=== PATIENT | male | born 1950 | race Caucasian/White ===

== ENCOUNTER → 2018-08-16 | Outpatient (CLI) | payer MEDICARE ==
[2018-08-16 13:25] LABS: PTH INTACT 39.2 PG/ML (18.5-88.0); TOTAL 25(OH) VITAMIN D 9.8 NG/ML (30.0-100.0)
== END ==
LOC: M SMT 09:17
PROVIDERS: ATTEND Family Medicine
DX: E83.52 Hypercalcemia (principal)

== ENCOUNTER 2018-11-28 10:46 | Inpatient (IN) | payer MEDICARE, OTHER ==
[2018-11-28] VITALS (8 sets, daily range): BP systolic 116–128; BP diastolic 58–68; O2SAT 93–96
[~2018-11-28] VITALS: Ht 177.8 cm; Wt 103.9 kg
--- NOTE | 2018-11-28 11:27 | REP ---
Chest one-view HISTORY: Cough Comparison: 06/14/2015 The lungs are clear. The heart is normal in size. The pulmonary vasculature is normal in appearance. Impression: No acute disease. Electronically Signed by Dar Johnson MD 11/28/2018 11:19 A
[2018-11-28 11:46] LABS: BASO % 0.2 % (0.0-1.0); EOS % 0.3 % (0.0-3.0); HEMATOCRIT 37.1 % (42.0-52.0); HEMOGLOBIN 12.1 g/dl (13.5-17.5); LYMPH # 1.2 10^3/uL (1.5-4.5); LYMPH % 10.4 % (24.0-44.0); MEAN CORPUSCULAR HEMOGLOBIN 28.7 pg (27.0-33.0); MEAN CORPUSCULAR HGB CONC 32.6 g/dl (32.0-36.5); MEAN CORPUSCULAR VOLUME 87.9 fl (80.0-96.0); MONO # 0.9 10^3/uL (0.0-0.8); MONO % 7.8 % (0.0-5.0); NEUTROPHILS # 9.4 10^3/uL (1.8-7.7); NEUTROPHILS % 80.3 % (36.0-66.0); PLATELET COUNT, AUTOMATED 329 10^3/uL (150-450); RED BLOOD COUNT 4.22 10^6/uL (4.30-6.10); WHITE BLOOD COUNT 11.7 10^3/uL (4.0-10.0)
[2018-11-28 11:49] LABS: ABG BASE EXCESS -1.6 (-2.0-2.0); ABG HCO3 21.7 MEQ/L (22.0-26.0); ABG O2 SATURATION 94.6 % (95.0-99.0); ABG PARTIAL PRESSURE CO2 32.2 mmHg (35.0-45.0); ABG PARTIAL PRESSURE O2 71.4 mmHg (75.0-100.0); ABG STANDARD HCO3 23.1 MEQ/L (22.0-26.0); ABG TOTAL CO2 22.7 MEQ/L (23.0-31.0); ABG pH (ARTERIAL) 7.447 UNITS (7.350-7.450)
[2018-11-28 11:59] LABS: INR 4.76; PROTHROMBIN TIME 45.9 SECONDS (12.1-14.4)
[2018-11-28 12:19] LABS: ALT/SGPT 21 U/L (12-78); BILIRUBIN,DIRECT 0.2 MG/DL (0.0-0.2); BILIRUBIN,TOTAL 0.7 MG/DL (0.2-1.0); BLOOD UREA NITROGEN 22 MG/DL (7-18); CALCIUM LEVEL 8.4 MG/DL (8.8-10.2); CARBON DIOXIDE LEVEL 25 MEQ/L (21-32); CHLORIDE LEVEL 106 MEQ/L (98-107); CPK CREATINE PHOSPHOKINASE 96 U/L (39-308); GLOMERULAR FILTRATION RATE > 60.0 (>49); GLUCOSE, FASTING 130 MG/DL (70-100); MB/CK RELATIVE INDEX 1.56 (< OR =4); NT-PRO BNP 2676 PG/ML (<125); SODIUM LEVEL 142 MEQ/L (136-145); TOTAL PROTEIN 6.5 GM/DL (6.4-8.2); TROPONIN I 0.14 NG/ML (< 0.10)
[2018-11-28] MEDS ORDERED: ISOVUE-370 76% 100ML VIAL (Q9967) As Ordered ONE (12:47)
[2018-11-28] MEDS ORDERED: POTA10TA67 PO (13:16)
[2018-11-28] MEDS ORDERED: METO25TA4 PO (13:16)
[2018-11-28] MEDS ORDERED: D-50CAP PO (13:16)
[2018-11-28] MEDS ORDERED: INVO300T PO (13:16)
[2018-11-28] MEDS ORDERED: ASPI81TA85 PO (13:16)
[2018-11-28] MEDS ORDERED: COLA100C5 PO (13:16)
[2018-11-28] MEDS ORDERED: WARF4TAB51 PO (13:16)
[2018-11-28] MEDS ORDERED: VALS1TAB49 PO (13:16)
[2018-11-28] MEDS ORDERED: FURO20TA2 PO (13:16)
[2018-11-28] MEDS ORDERED: GABA-845 PO (13:16)
[2018-11-28] MEDS ORDERED: FOLI1TAB11 PO (13:16)
[2018-11-28] MEDS ORDERED: JANU50TA8 PO (13:16)
[2018-11-28] MEDS ORDERED: FERR325T16 PO (13:16)
[2018-11-28] MEDS ORDERED: ATOR40TA75 PO (13:16)
[2018-11-28] MEDS ORDERED: AMIO200T PO (13:16)
[2018-11-28] MEDS ORDERED: LEVO50TA5 PO (13:16)
[2018-11-28] MEDS ORDERED: OXYC1TAB23 PO (15:00)
[2018-11-28] MEDS ORDERED: ACET-908 PO (15:00)
--- NOTE | 2018-11-28 15:14 | REP ---
CT PULMONARY ANGIOGRAM: With IV contrast. HISTORY: Shortness of breath. Chest pain. Status post CABG and aortic valve procedure November 20, 2018 COMPARISON STUDIES: No comparison chest CT. CONTRAST DOSE: 75 mL of Isovue [address] TECHNIQUE: Helical scanning is acquired and overlapping 1.5 mm and contiguous 3 mm axial images are reformatted. In addition, maximum intensity projection and multiplanar re-formation images are generated in sagittal and coronal imaging projections. CT PULMONARY ANGIOGRAPHIC FINDINGS: There is good opacification of the pulmonary arterial tree. There is no CT evidence of pulmonary embolism. Thoracic aorta enhances homogeneously. There is no evidence of aortic dissection or aneurysm. There is a small amount of pericardial fluid seen. There is some postoperative air visible in the epicardial fat anteriorly and deep to the sternotomy. There is no evidence of pneumothorax or other evidence of pneumomediastinum. There is pleural fluid present bilaterally, left a little more extensively than right. These effusions are small. The patient is status post aortic valve replacement. No pulmonary nodule or mass lesion is seen. There are plate-like atelectatic changes in the left upper lobe anteriorly. There is a 2.7 cm right adrenal nodule. IMPRESSION: Status post a recent aortic valve replacement and bypass grafting procedure. Some postoperative air is seen in the epicardial fat and retrosternal soft tissues. Small bilateral pleural effusions are present left greater than right. There is a small quantity of pericardial fluid. There is no CT evidence of pulmonary embolus or aortic dissection or aneurysm. A 2.7 cm right adrenal nodule is noted incidentally. This may be an adenoma but this cannot be stated with certainty on this contrast-enhanced study. A noncontrast CT may be helpful. Electronically Signed by Christian Mcneill MD 11/28/2018 03:54 P
[2018-11-28] MEDS ORDERED: FUROSEMIDE 40 MG/4 ML VIAL (J1940) IV ONE (15:30)
[2018-11-28] MEDS ORDERED: ALBUTEROL SULFATE 2.5 MG/0.5 ML INH NEB SOLN INH ONE (15:30)
[2018-11-28] MEDS ORDERED: IPRATROPIUM 0.5MG/ALBUTEROL 2.5MG INH SOL UD 3ML (DUONEB)(J7620) NEB ONE (15:30)
[2018-11-28] MEDS ORDERED: LEVO75TA4 PO (16:05)
[2018-11-28] MEDS ORDERED: ACETAMINOPHEN TAB 650MG DOSE (2X325MG) PO PRN (16:30)
[2018-11-28] MEDS ORDERED: MAALOX 30 ML SUSP *UDC PO PRN (16:30)
[2018-11-28] MEDS ORDERED: DEXTROSE 50% 50 ML SYRINGE IV PRN (16:30)
[2018-11-28] MEDS ORDERED: AMIODARONE 200 MG TAB (PACERONE) PO SCH (16:30)
[2018-11-28] MEDS ORDERED: GLUCAGON FOR INJ 1 MG VIAL (J1610) SC PRN (16:30)
[2018-11-28] MEDS ORDERED: GLUCOSE 4 GM CHEW TABLET PO PRN (16:30)
[2018-11-28] MEDS ORDERED: MOM 30ML SUSPENSION UDC PO PRN (16:30)
[2018-11-28] MEDS ORDERED: DOCUSATE SODIUM 100 MG CAP PO PRN (16:30)
[2018-11-28] MEDS ORDERED: PERCOCET 5MG/325MG TAB PO PRN (16:30)
--- NOTE | 2018-11-28 16:42 | HPEPDOC ---
General Date of Admission 11/28/2018 Date of Service: November 28, 2018 Primary Care Physician: ERNESTINE LAWSON DO Attending Physician: MARIVEL CLARKE MD Chief Complaint The patient is a 68-year-old male admitted with a reason for visit of SOB. Source: Patient, Family Exam Limitations: No limitations Timing/Duration: Other (his discharge from [facility]) Severity: Moderate Associated Symptoms: Nausea, Shortness of breath, Dizziness History of Present Illness 68 years old white male with past medical history of CAD, hypertension, hyperlipidemia, diabetes type 2. Once recently admitted to [place] at [facility] and had a aortic wall replacement along with CABG done and he was discharged home on last Sunday but patient has been feeling tired, fatigued, dizzy, nausea and shortness of breath. These symptoms of persistent not relieving with any medication or position nonexcessive not exacerbated by any position . No other association with any other symptoms such as chest pain, nausea is not associated with vomiting and dizziness not associated with headache. Patient called his his wire cutter Dr. Munoz and was referred to ER Home Medications Scheduled Amiodarone HCl (Amiodarone HCl) 200 Mg Tablet, 200 MG PO ASDIRECTED, (Reported) TAPERING DOSE STARTED ON 11/24/18. 2 TABS BID X 7 DAYS THEN 1 TAB BID X 7 DAYS THEN 1 DAILY X 7 DAYS. Aspirin (Aspir 81) 81 Mg Tablet.dr, 81 MG PO DAILY, (Reported) Atorvastatin Calcium (Atorvastatin Calcium) 40 Mg Tablet, 40 MG PO DAILY, (Reported) Canagliflozin (Invokana) 300 Mg Tablet, 300 MG PO DAILY, (Reported) Ferrous Gluconate (Ferrous Gluconate) 324 Mg Tablet, 324 MG PO BIDWM, (Reported) Folic Acid (Folic Acid) 1 Mg Tablet, 1 MG PO DAILY, (Reported) Furosemide (Furosemide) 20 Mg Tablet, 20 MG PO DAILY, (Reported) Gabapentin (Gabapentin) 400 Mg Capsule, 400 MG PO BID, (Reported) Levothyroxine Sodium (Levothyroxine Sodium) 75 Mcg Tablet, 75 MCG PO DAILY, (Reported) Metoprolol Tartrate (Metoprolol Tartrate) 25 Mg Tablet, 25 MG PO BID, (Reported) Potassium Chloride (Potassium Chloride) 10 Meq Tab.er.prt, 10 MEQ PO DAILY, (Reported) Sitagliptin Phos/Metformin HCl (Janumet 50-1,000 mg Tablet) 1 Each Tablet, 1 TAB PO BID, (Reported) Valsartan (Valsartan) 40 Mg Tablet, 20 MG PO DAILY, (Reported) Warfarin Sodium (Warfarin Sodium) 2 Mg Tablet, 4 MG PO QHS, (Reported) Scheduled PRN Acetaminophen (Acetaminophen) 325 Mg Tablet, 650 MG PO Q4H PRN for PAIN, (Reported) Docusate Sodium (Colace) 100 Mg Capsule, 100 MG PO BID PRN for LOOSE STOOL, (Reported) Oxycodone HCl/Acetaminophen (Oxycodone-Acetaminophen 5-325) 1 Each Tablet, 1 TAB PO Q4H PRN for PAIN, (Reported) Allergies Coded Allergies: No Known Allergies (Unverified , 11/28/18) Past Medical History Medical History As per [facility] Surgical History Circumcision recently about 2 weeks ago Family History Significant Family History: No pertinent family hx Social History * Smoker: Denies Drugs: denies A-FIB/CHADSVASC A-FIB History Current/History of A-Fib/PAF?: Yes Current PO Anticoag Therapy: Yes Review of Systems Constitutional: Reports: Weakness, Fatigue Eyes: Denies: Pain, Vision change, Conjunctivae inflammation, Eyelid inflammation, Redness, Other ENT: Denies: Head Aches, Ear Pain, Dysphagia, Sinus Congestion, Post Nasal Drip, Sore Throat, Epistaxis, Other Symptoms Skin: Denies: Rash, Lesions, Jaundice, Bruising, Itching, Dry, Breakdown, Nail Changes, Other Pulmonary: Reports: Dyspnea Cardiovascular: Denies: Chest Pain, Palpitations, Orthopnea, Paroxysmal Noc. Dyspnea, Edema, Lt Headedness, Other Symptoms Gastrointestinal: Reports: Nausea Genitourinary: Denies: Dysuria, Frequency, Incontinence, Hematuria, Retention, Other Symptoms Hematologic: Denies: Bruising, Bleeding Excessively, Petecchia, Purpura, Enlarged Lymph Nodes, Other Hematologic Endocrine: Denies: Polydipsia, Polyphagia, Polyuria, Heat Intolerance, Cold Intolerance, Other Endocrine Sx Musculoskeletal: Denies: Neck Pain, Back Pain, Shoulder Pain, Arm Pain, Hand Pain, Leg Pain, Foot Pain, Joint Pain, Muscle Pain, Spasms, Other Symptoms Neurological: Reports: Other Symptoms (, dizziness) Psych: Denies: Mood Normal, Anxiety, Depression, Memory Issues, Thoughts of Self Harm, Anger, Thoughts of Harming Other, Other Psych Physical Examination General Exam: Positive: Alert, Cooperative, No Acute Distress Eye Exam: Positive: PERRLA, Conjunctiva & lids normal ENT Exam: Positive: Atraumatic, Mucous membr. moist/pink Neck Exam: Positive: Supple Chest Exam: Positive: Clear to auscultation, Normal air movement Heart Exam: Positive: Rate Normal, Normal S1, Normal S2, Murmurs (, pansystolic murmur audible) Abdomen Exam: Positive: Normal bowel sounds, Soft Extremity Exam: Positive: Normal pulses Skin Exam: Positive: Nl turgor and temperature Neuro Exam: Positive: Normal Gait, Normal Speech Psych Exam: Positive: Mental status NL, Oriented x 3 Vital Signs Vital Signs Date Time Temp Pulse Resp B/P (MAP) Pulse Ox O2 Delivery O2 Flow Rate FiO2 11/28/18 16:00 66 133/68 (89) 95 11/28/18 11:45 Room Air 11/28/18 11:30 17 11/28/18 10:46 96.2 Laboratory Data Labs 24H Laboratory Tests 2 11/28/18 11:30: Immature Granulocyte % (Auto) 1.0, White Blood Count 11.7H, Red Blood Count 4.22L, Hemoglobin 12.1L, Hematocrit 37.1L, Mean Corpuscular Volume 87.9, Mean Corpuscular Hemoglobin 28.7, Mean Corpuscular Hemoglobin Concent 32.6, Red Cell Distribution Width 14.4, Platelet Count 329, Neutrophils (%) (Auto) 80.3H, Lymphocytes (%) (Auto) 10.4L, Monocytes (%) (Auto) 7.8H, Eosinophils (%) (Auto) 0.3, Basophils (%) (Auto) 0.2, Neutrophils # (Auto) 9.4H, Lymphocytes # (Auto) 1.2L, Monocytes # (Auto) 0.9H, Eosinophils # (Auto) 0.0, Basophils # (Auto) 0.0, Nucleated Red Blood Cells % (auto) 0.0, Prothrombin Time 45.9H, Prothromb Time International Ratio 4.76, Anion Gap 11, Glomerular Filtration Rate > 60.0, Lactic Acid Level 1.6, Calcium Level 8.4L, Aspartate Amino Transf (AST/SGOT) 25, Alanine Aminotransferase (ALT/SGPT) 21, Alkaline Phosphatase 66, Total Bilirubin 0.7, Direct Bilirubin 0.2, Total Creatine Kinase 96, Creatine Kinase MB 2.0, Creatine Kinase MB Relative Index 1.56, Troponin I 0.14H, SP-Pin-N-Type Natriuretic Peptide 2676H, Total Protein 6.5, Albumin 3.0L, Albumin/Globulin Ratio 0.86L, Thyroid Stimulating Hormone (TSH) 3.240 11/28/18 11:37: Blood Gas Bicarbonate Standard 23.1, Arterial Blood pH 7.447, Arterial Blood Partial Pressure CO2 32.2L, Arterial Blood Partial Pressure O2 71.4L, Arterial Blood Total CO2 22.7L, Arterial Blood HCO3 21.7L, Arterial Blood Base Excess - 1.6, Arterial Blood Oxygen Saturation 94.6L 11/28/18 15:27: Urine Color YELLOW, Urine Appearance CLEAR, Urine pH 5.0, Urine Specific [place] 1.040, Urine Protein NEGATIVE, Urine Glucose (UA) 3+H, Urine Ketones 1+H, Urine Blood NEGATIVE, Urine Nitrite NEGATIVE, Urine Bilirubin NEGATIVE, Urine Urobilinogen 0.2, Urine Leukocyte Esterase NEGATIVE, Urine WBC (Auto) 0, Urine RBC (Auto) 3, Urine Hyaline Casts (Auto) 0, Urine Bacteria (Auto) NEGATIVE, Urine Squamous Epithelial Cells 0, Urine Sperm (Auto) CBC/BMP Laboratory Tests 11/28/18 11:30 Red Blood Count 4.22 L, Mean Corpuscular Volume 87.9, Mean Corpuscular Hemoglobin 28.7, Mean Corpuscular Hemoglobin Concent 32.6, Red Cell Distribution Width 14.4, Neutrophils (%) (Auto) 80.3 H, Lymphocytes (%) (Auto) 10.4 L, Monocytes (%) (Auto) 7.8 H, Eosinophils (%) (Auto) 0.3, Basophils (%) (Auto) 0.2, Neutrophils # (Auto) 9.4 H, Lymphocytes # (Auto) 1.2 L, Monocytes # (Auto) 0.9 H, Eosinophils # (Auto) 0.0, Basophils # (Auto) 0.0 Microbiology Microbiology 11/28/18 Blood Culture, Received Pending 11/28/18 Blood Culture, Received Pending Problems (1) CHF (congestive heart failure) Status: Acute Problem Text: Admit patient to PCU with telemetry Strict I and O's Patient did receive a dose of Lasix of dose of Lasix 40 mg IV push ED physician Dr. Mars has spoken with Dr. eduardo very and Dr. Jean and they have recommended diurese is at the present time. Will continue diuresis with Lasix 40 mg IV push every 12 hours Fingerstick blood sugar every before meals and at bedtime with coverage Continue all home medications Serial troponin and EKG ordered Serum amiodarone level also ordered Echocardiogram CT showed consistent with bilateral small pleural effusions, no pneumonia UA is negative wbc count is slightly elevated and electrolytes are within normal range except BNP, which is 2675 and troponin is 0.14 If patient does not improve in 24 hours. We'll call back Dr. eduardo who performed the surgery on a patient and asked for further recommendations. DVT prophylaxis not needed as patient is on Coumadin and INR is supratherapeutic, for which a daily INR has been ordered and Coumadin is on hold , We'll closely monitor patient for any changes in the clinical status Plan / VTE VTE Prophylaxis Ordered?: Yes MARIVEL CLARKE MD November 28, 2018 16:42
[2018-11-28] MEDS: HumaLOG INSULIN (NovoLOG) PER UNIT SC SCH ×2 (17:30→20:09)
[2018-11-28] MEDS ORDERED: PILL CUTTER 1 EACH XX PRN (18:45)
[2018-11-28] MEDS: FERROUS GLUCONATE 324 MG TAB PO SCH (19:36)
[2018-11-28] MEDS: GABAPENTIN 400 MG CAP PO SCH (20:04)
[2018-11-28] MEDS: METOPROLOL TART 25 MG TABLET PO SCH (20:04)
[2018-11-28] MEDS: AMIODARONE 200 MG TAB (PACERONE) PO SCH (20:04)
[2018-11-28] MEDS: DOCUSATE SODIUM 100 MG CAP PO SCH (20:04)
[2018-11-29] VITALS (14 sets, daily range): BP systolic 109–123; BP diastolic 57–74; O2SAT 93–95
--- NOTE | 2018-11-29 05:52 | ECGEPIP ---
[facility] - ED Test Date: 2018-11-28 Pat Name: KARAN ZULUAGA Department: Room: - Gender: Male Compliance Officer: ct : 1950 Requested By: Elina Nichols Order Number: [id number] Reading MD: Steven Sow Measurements Intervals [place] Rate: 65 P: 9 TN: 230 QRS: QRSD: 100 T: 14 QT: 430 QTc: 448 Interpretive Statements SINUS RHYTHM WITH FIRST DEGREE AV BLOCK POSSIBLE ANTERIOR MYOCARDIAL INFARCTION, OF INDETERMINATE AGE SIMILAR TO 06/14/15 Electronically Signed on 11-29-2018 5:52:18 EDT by Steven Sow
[2018-11-29 05:56] LABS: HEMATOCRIT 35.7 % (42.0-52.0); HEMOGLOBIN 11.6 g/dl (13.5-17.5); MEAN CORPUSCULAR HEMOGLOBIN 28.6 pg (27.0-33.0); MEAN CORPUSCULAR HGB CONC 32.5 g/dl (32.0-36.5); MEAN CORPUSCULAR VOLUME 87.9 fl (80.0-96.0); PLATELET COUNT, AUTOMATED 315 10^3/uL (150-450); RED BLOOD COUNT 4.06 10^6/uL (4.30-6.10); WHITE BLOOD COUNT 10.5 10^3/uL (4.0-10.0)
[2018-11-29 06:13] LABS: INR 4.34; PROTHROMBIN TIME 42.6 SECONDS (12.1-14.4)
[2018-11-29 06:29] LABS: ALBUMIN 2.7 GM/DL (3.2-5.2); ALT/SGPT 24 U/L (12-78); BILIRUBIN,TOTAL 0.7 MG/DL (0.2-1.0); BLOOD UREA NITROGEN 25 MG/DL (7-18); CALCIUM LEVEL 8.6 MG/DL (8.8-10.2); CARBON DIOXIDE LEVEL 24 MEQ/L (21-32); CHLORIDE LEVEL 107 MEQ/L (98-107); CREATININE FOR GFR 1.15 MG/DL (0.70-1.30); GLOMERULAR FILTRATION RATE > 60.0 (>49); GLUCOSE, FASTING 122 MG/DL (70-100); POTASSIUM SERUM 3.6 MEQ/L (3.5-5.1); SODIUM LEVEL 141 MEQ/L (136-145); TOTAL PROTEIN 6.4 GM/DL (6.4-8.2); TROPONIN I 0.13 NG/ML (< 0.10)
[2018-11-29] MEDS: LEVOTHYROXINE 75MCG TABLET (0.075MG) PO SCH (06:31)
[2018-11-29] MEDS: FUROSEMIDE 40 MG/4 ML VIAL (J1940) IV SCH ×2 (06:32→18:09)
[2018-11-29] MEDS: HumaLOG INSULIN (NovoLOG) PER UNIT SC SCH ×4 (08:48→20:40)
[2018-11-29] MEDS: ASPIRIN 81 MG ENTERIC TAB PO SCH (08:49)
[2018-11-29] MEDS: GABAPENTIN 400 MG CAP PO SCH ×2 (08:49→20:37)
[2018-11-29] MEDS: ATORVASTATIN 20 MG TAB PO SCH (08:49)
[2018-11-29] MEDS: DOCUSATE SODIUM 100 MG CAP PO SCH ×2 (08:49→20:37)
[2018-11-29] MEDS: FERROUS GLUCONATE 324 MG TAB PO SCH ×2 (08:50→18:09)
[2018-11-29] MEDS: FOLIC ACID 1 MG TAB PO SCH (08:50)
[2018-11-29] MEDS: AMIODARONE 200 MG TAB (PACERONE) PO SCH ×2 (08:50→20:37)
[2018-11-29] MEDS: METOPROLOL TART 25 MG TABLET PO SCH ×2 (08:50→20:39)
[2018-11-29] MEDS: VALSARTAN 40MG TABLET (DIOVAN) PO SCH (08:51)
[2018-11-29] MEDS ORDERED: POTASSIUM CHLORIDE 10 MEQ SR TABLET PO SCH (09:00)
--- NOTE | 2018-11-29 10:07 | REP ---
Portable chest x-ray: Single view. History: CHF. Comparison study: November 28, 2018. Findings: The lungs are well inflated and clear. EKG electrodes are seen. Median sternotomy wires are noted. Heart is mildly enlarged unchanged. There is a linear opacity along the left heart border consistent with discoid atelectasis. The pleural angles are sharp. Impression: Cardiomegaly. Plate-like atelectasis along the left heart border. Otherwise no acute abnormality. There is no evidence of pleural effusion or pulmonary edema. Electronically Signed by Christian Mcneill MD 11/29/2018 09:59 A
--- NOTE | 2018-11-29 12:34 | IPNPDOC ---
Subjective Date Seen The patient was seen on 11/29/18. Subjective Chief Complaint/HPI foods much better. Shortness of breath is resolved General: Denies: ROS Unobtainable, Chills, Night Sweats, Fatigue, Malaise, Normal Appetite, Other Symptoms Constitutional: Denies: Chills, Fever, Malaise, Night Sweats, Weakness, Fatigue, Weight Loss, Lethargy, Other Eyes: Denies: Pain, Vision change, Conjunctivae inflammation, Eyelid inflammation, Redness, Other ENT: Denies: Head Aches, Ear Pain, Dysphagia, Sinus Congestion, Post Nasal Drip, Sore Throat, Epistaxis, Other Symptoms Skin: Denies: Rash, Lesions, Jaundice, Bruising, Itching, Dry, Breakdown, Nail Changes, Other Pulmonary: Denies: Dyspnea, Cough, Pleuritic Chest Pain, Other Symptoms Cardiovascular: Denies: Chest Pain, Palpitations, Orthopnea, Paroxysmal Noc. Dyspnea, Edema, Lt Headedness, Other Symptoms Gastrointestinal: Denies: Nausea, Vomiting, Abdominal Pain, Diarrhea, Constipation, Melena, Hematochezia, Other Symptoms Genitourinary: Denies: Dysuria, Frequency, Incontinence, Hematuria, Retention, Other Symptoms Hematologic: Denies: Bruising, Bleeding Excessively, Petecchia, Purpura, Enlarged Lymph Nodes, Other Hematologic Endocrine: Denies: Polydipsia, Polyphagia, Polyuria, Heat Intolerance, Cold Intolerance, Other Endocrine Sx Musculoskeletal: Denies: Neck Pain, Back Pain, Shoulder Pain, Arm Pain, Hand Pain, Leg Pain, Foot Pain, Joint Pain, Muscle Pain, Spasms, Other Symptoms Neurological: Denies: Weakness, Numbness, Incoordination, Change in speech, Confusion, Seizures, Other Symptoms Psych: Denies: Mood Normal, Anxiety, Depression, Memory Issues, Thoughts of Self Harm, Anger, Thoughts of Harming Other, Other Psych Objective Physical Examination General Exam: Positive: Alert, Cooperative, No Acute Distress Eye Exam: Positive: PERRLA, Conjunctiva & lids normal ENT Exam: Positive: Atraumatic, Mucous membr. moist/pink Neck Exam: Positive: Supple Chest Exam: Positive: Clear to auscultation, Normal air movement, Other (. Bilateral basal crackles) Heart Exam: Positive: Rate Normal, Normal S1, Normal S2, Murmurs (, pansystolic murmur audible) Abdomen Exam: Positive: Normal bowel sounds, Soft Extremity Exam: Positive: Normal pulses Skin Exam: Positive: Nl turgor and temperature Neuro Exam: Positive: Normal Gait, Normal Speech Psych Exam: Positive: Mental status NL, Oriented x 3 Assessment /Plan Problems (1) CHF (congestive heart failure) Status: Acute Problem Text: Admit patient to PCU with telemetry Strict I and O's Patient did receive a dose of Lasix of dose of Lasix 40 mg IV push ED physician Dr. Mars has spoken with Dr. eduardo very and Dr. Jean and they have recommended diurese is at the present time. Will continue diuresis with Lasix 40 mg IV push every [address] Munoz today during the any abnormality and echocardiogram, and patient does not improve improve, we will called for consultation Fingerstick blood sugar every before meals and at bedtime with coverage Continue all home medications Serial troponin with slight bump most likely secondary to type II ischemia and EKG essentially unchanged Serum amiodarone level pending CT showed consistent with bilateral small pleural effusions, no pneumonia UA is negative wbc count is slightly elevated and electrolytes are within normal range except BNP, which is 2675 and troponin is 0.14 If patient does not improve in 24 hours. We'll call back Dr. eduardo who performed the surgery on a patient and asked for further recommendations. DVT prophylaxis not needed as patient is on Coumadin and INR is supratherapeutic, for which a daily INR has been ordered and Coumadin is on hold , We'll closely monitor patient for any changes in the clinical status Plan/VTE VTE Prophylaxis Ordered?: Yes VS, I&O, 24H, Patricia Vital Signs/I&O Vital Signs Date Time Temp Pulse Resp B/P (MAP) Pulse Ox O2 Delivery O2 Flow Rate FiO2 11/29/18 12:00 96.9 64 16 110/57 (74) 96 11/29/18 04:00 Room Air I&O- Last 24 Hours up to 6 AM 11/29/18 06:00 Intake Total 740 ml Output Total 1200 ml Balance -460 ml Laboratory Data 24H LABS Laboratory Tests 2 11/28/18 15:27: Urine Color YELLOW, Urine Appearance CLEAR, Urine pH 5.0, Urine Specific [place] 1.040, Urine Protein NEGATIVE, Urine Glucose (UA) 3+H, Urine Ketones 1+H, Urine Blood NEGATIVE, Urine Nitrite NEGATIVE, Urine Bilirubin NEGATIVE, Urine U robilinogen 0.2, Urine Leukocyte Esterase NEGATIVE, Urine WBC (Auto) 0, Urine RBC (Auto) 3, Urine Hyaline Casts (Auto) 0, Urine Bacteria (Auto) NEGATIVE, Urine Squamous Epithelial Cells 0, Urine Sperm (Auto) 11/28/18 18:23: Bedside Glucose (Misc Panel) 247H 11/28/18 20:07: Bedside Glucose (Misc Panel) 154H 11/29/18 05:28: Nucleated Red Blood Cells % (auto) 0.0, Prothrombin Time 42.6H, Prothromb Time International Ratio 4.34, Anion Gap 10, Glomerular Filtration Rate > 60.0, Blood Urea Nitrogen 25H, Creatinine 1.15, Sodium Level 141, Potassium Level 3.6, Chloride Level 107, Carbon Dioxide Level 24, Calcium Level 8.6L, Aspartate Amino Transf (AST/SGOT) 20, Alanine Aminotransferase (ALT/SGPT) 24, Alkaline Phosphatase 60, Total Bilirubin 0.7, Total Protein 6.4, Albumin 2.7L, Magnesium Level 2.0, Troponin I 0.13H, Albumin/Globulin Ratio 0.73L 11/29/18 12:24: Bedside Glucose (Misc Panel) 171H CBC/BMP Laboratory Tests 11/29/18 05:28 Red Blood Count 4.06 L, Mean Corpuscular Volume 87.9, Mean Corpuscular Hemoglobin 28.6, Mean Corpuscular Hemoglobin Concent 32.5, Red Cell Distribution Width 14.6 H, Calcium Level 8.6 L, Aspartate Amino Transf (AST/SGOT) 20, Alanine Aminotransferase (ALT/SGPT) 24, Alkaline Phosphatase 60, Total Bilirubin 0.7, Total Protein 6.4, Albumin 2.7 L Microbiology Microbiology 11/28/18 Blood Culture, Received Pending 11/28/18 Blood Culture - Preliminary, Resulted No growth after 24 hours . All specim... MARIVEL CLARKE MD November 29, 2018 12:34
[2018-11-29] MEDS ORDERED: SLF 3 ML SYR IV PRN (13:45)
[2018-11-29] MEDS: SLF 3 ML SYR IV SCH ×2 (14:00→22:00)
--- NOTE | 2018-11-29 16:33 | ECGEPIP ---
[facility] Test Date: 2018-11-29 Pat Name: KARAN ZULUAGA Department: Room: [place] [address] Gender: Male Food Service Agent: DANIEL : 1950 Requested By: MARIVEL CLARKE Order Number: [id number] Reading MD: Rai Fink Measurements Intervals [place] Rate: 66 P: 6 SD: 217 QRS: QRSD: 107 T: 16 QT: 455 QTc: 478 Interpretive Statements SINUS RHYTHM WITH FIRST DEGREE AV BLOCK LEFT AXIS DEVIATION Poor R-wave progression POSSIBLE OLD ANTERIOR MYOCARDIAL INFARCT No significant change compared with 11/28/2018 at 1110 Electronically Signed on 11-29-2018 16:32:47 EDT by Rai Fink
[2018-11-30] VITALS (17 sets, daily range): BP systolic 107–134; BP diastolic 56–78; O2SAT 92–97
[2018-11-30 04:48] LABS: BASO % 0.2 % (0.0-1.0); EOS # 0.2 10^3/uL (0.0-0.50); EOS % 1.4 % (0.0-3.0); HEMOGLOBIN 11.7 g/dl (13.5-17.5); LYMPH # 1.6 10^3/uL (1.5-4.5); LYMPH % 15.5 % (24.0-44.0); MEAN CORPUSCULAR HGB CONC 32.5 g/dl (32.0-36.5); MEAN CORPUSCULAR VOLUME 86.1 fl (80.0-96.0); MONO # 1.1 10^3/uL (0.0-0.8); MONO % 10.5 % (0.0-5.0); NEUTROPHILS # 7.5 10^3/uL (1.8-7.7); NEUTROPHILS % 71.2 % (36.0-66.0); PLATELET COUNT, AUTOMATED 341 10^3/uL (150-450); RED BLOOD COUNT 4.18 10^6/uL (4.30-6.10); WHITE BLOOD COUNT 10.6 10^3/uL (4.0-10.0)
[2018-11-30 04:58] LABS: INR 2.29; PROTHROMBIN TIME 25.7 SECONDS (12.1-14.4)
[2018-11-30 05:14] LABS: BLOOD UREA NITROGEN 28 MG/DL (7-18); CALCIUM LEVEL 8.7 MG/DL (8.8-10.2); CARBON DIOXIDE LEVEL 28 MEQ/L (21-32); CHLORIDE LEVEL 103 MEQ/L (98-107); CREATININE FOR GFR 1.27 MG/DL (0.70-1.30); GLOMERULAR FILTRATION RATE > 60.0 (>49); GLUCOSE, FASTING 139 MG/DL (70-100); POTASSIUM SERUM 3.4 MEQ/L (3.5-5.1); SODIUM LEVEL 141 MEQ/L (136-145); TROPONIN I 0.11 NG/ML (< 0.10)
[2018-11-30] MEDS: LEVOTHYROXINE 75MCG TABLET (0.075MG) PO SCH (05:42)
[2018-11-30] MEDS: FUROSEMIDE 40 MG/4 ML VIAL (J1940) IV SCH (05:42)
[2018-11-30] MEDS: SLF 3 ML SYR IV SCH ×3 (05:43→21:37)
[2018-11-30] MEDS: FERROUS GLUCONATE 324 MG TAB PO SCH ×2 (07:47→17:42)
[2018-11-30] MEDS: HumaLOG INSULIN (NovoLOG) PER UNIT SC SCH ×4 (07:48→21:00)
[2018-11-30] MEDS: GABAPENTIN 400 MG CAP PO SCH ×2 (09:09→21:35)
[2018-11-30] MEDS: ATORVASTATIN 20 MG TAB PO SCH (09:10)
[2018-11-30] MEDS: DOCUSATE SODIUM 100 MG CAP PO SCH ×2 (09:10→21:35)
[2018-11-30] MEDS: METOPROLOL TART 25 MG TABLET PO SCH ×2 (09:10→21:36)
[2018-11-30] MEDS: POTASSIUM CHLORIDE 10 MEQ SR TABLET PO SCH ×2 (09:11→21:35)
[2018-11-30] MEDS: ASPIRIN 81 MG ENTERIC TAB PO SCH (09:11)
[2018-11-30] MEDS: AMIODARONE 200 MG TAB (PACERONE) PO SCH ×2 (09:11→21:35)
[2018-11-30] MEDS: VALSARTAN 40MG TABLET (DIOVAN) PO SCH (09:11)
[2018-11-30] MEDS: FOLIC ACID 1 MG TAB PO SCH (09:11)
--- NOTE | 2018-11-30 09:51 | ECHO ---
DATE OF PROCEDURE: 11/29/2018 REFERRING PHYSICIAN: Dr. Guerrero. INDICATION: Dyspnea. HEIGHT: 175 cm. WEIGHT: 104 kg. DIMENSIONS: IVS: 1.7 LV: 4.3 LVPW: 1.4 Mitral E wave velocity: 89 A wave: 90 E prime septal: 5.8 E prime lateral: 5.4 FINDINGS: The study is of rather limited technical quality with difficulty visualization. Patient is in sinus rhythm. Left ventricle is normal size. There is moderate left ventricle hypertrophy. Overall likely normal LV systolic function based on limited visualization. Right ventricle does not appear grossly enlarged. There is at least mild left atrial enlargement but visualization was limited. Same applies for right atrium. There is a bioprosthetic valve in the aortic position. It was poorly visualized and I cannot comment on its structure. Mitral valve appears grossly normal. Tricuspid valve also appears grossly normal. Based on limited visualization, pulmonary valve had normal appearance. There is small posteriorly located pericardial effusion without any signs of cardiac compression. Inferior vena cava was not visualized. Aortic root appears normal. Aortic arch and abdominal aorta were poorly seen. Doppler interrogation of aortic prosthesis reveals no insufficiency and no stenosis, mean transaortic gradient was 7 mmHg. There is no significant mitral stenosis or insufficiency and trace tricuspid insufficiency. Calculated pulmonary artery pressure is in minimum 30s assuming normal central venous pressure. Pulmonic valve is functionally competent. Mitral inflow pattern and tissue Doppler imaging of mitral annulus revealed pseudonormal appearing pattern indicative of elevated left ventricular end diastolic pressure. CONCLUSIONS: 1. Study is of rather limited technical quality. 2. Normal LV size with moderate left ventricular hypertrophy and likely normal LV systolic function and grade II diastolic dysfunction. 3. Normally appearing bioprosthesis in aortic position without stenosis or insufficiency. 4. No significant mitral and tricuspid valvular disease. 5. Unable to estimate central venous pressure but at least mild pulmonary hypertension. 6. Small posteriorly located pericardial effusion without any signs of cardiac compression. COMMENT: Subacute bacterial endocarditis (SBE) prophylaxis is recommended. MTDD
[2018-11-30] MEDS ORDERED: FUROSEMIDE 40 MG TAB PO SCH (17:00)
[2018-12-01 04:00] VITALS: BP 117/59
[2018-12-01 05:12] LABS: BASO % 0.2 % (0.0-1.0); EOS # 0.2 10^3/uL (0.0-0.50); EOS % 1.5 % (0.0-3.0); HEMATOCRIT 37.2 % (42.0-52.0); HEMOGLOBIN 12.2 g/dl (13.5-17.5); LYMPH # 1.5 10^3/uL (1.5-4.5); LYMPH % 14.1 % (24.0-44.0); MEAN CORPUSCULAR HEMOGLOBIN 28.2 pg (27.0-33.0); MEAN CORPUSCULAR HGB CONC 32.8 g/dl (32.0-36.5); MEAN CORPUSCULAR VOLUME 85.9 fl (80.0-96.0); MONO # 1.1 10^3/uL (0.0-0.8); MONO % 10.2 % (0.0-5.0); NEUTROPHILS # 7.7 10^3/uL (1.8-7.7); NEUTROPHILS % 73.1 % (36.0-66.0); PLATELET COUNT, AUTOMATED 347 10^3/uL (150-450); RED BLOOD COUNT 4.33 10^6/uL (4.30-6.10); WHITE BLOOD COUNT 10.5 10^3/uL (4.0-10.0)
[2018-12-01 05:22] LABS: INR 1.76; PROTHROMBIN TIME 20.8 SECONDS (12.1-14.4)
[2018-12-01] MEDS: SLF 3 ML SYR IV SCH (05:26)
[2018-12-01] MEDS: LEVOTHYROXINE 75MCG TABLET (0.075MG) PO SCH (05:26)
[2018-12-01 05:40] LABS: ALBUMIN 3.1 GM/DL (3.2-5.2); BILIRUBIN,TOTAL 0.9 MG/DL (0.2-1.0); CALCIUM LEVEL 8.8 MG/DL (8.8-10.2); CREATININE FOR GFR 1.39 MG/DL (0.70-1.30); GLOMERULAR FILTRATION RATE 54.3 (>49); POTASSIUM SERUM 3.3 MEQ/L (3.5-5.1); TOTAL PROTEIN 7.4 GM/DL (6.4-8.2)
[2018-12-01] MEDS ORDERED: POTASSIUM CHLORIDE 10 MEQ SR TABLET PO ONE (07:00)
[2018-12-01] MEDS: FERROUS GLUCONATE 324 MG TAB PO SCH (07:30)
[2018-12-01] MEDS: HumaLOG INSULIN (NovoLOG) PER UNIT SC SCH (07:31)
[2018-12-01 08:00] VITALS: BP 133/61
--- NOTE | 2018-12-01 08:28 | DS.PDOC ---
Discharge Summary General Date of Admission November 28, 2018 at 16:19 Date of Discharge 12/01/2018 Attending Physician: MARIVEL CLARKE MD Discharge Summary PROCEDURES PERFORMED DURING STAY: None. ADMITTING DIAGNOSES: 1. Congestive heart failure, coronary artery disease status post aortic wall replacement and CABG. DISCHARGE DIAGNOSES: 1. Acute diastolic congestive heart failure, status post aortic wall replacement and CABG, coronary artery disease, hypertension, hyperlipidemia, type 2 diabetes mellitus, small bilateral pleural effusions and small pericardial effusion. COMPLICATIONS/CHIEF COMPLAINT: CHF. HISTORY OF PRESENT ILLNESS: 68 years old white male with past medical history of CAD, hypertension, hyperlipidemia, diabetes type 2. Once recently admitted to [facility] and had a aortic wall replacement along with CABG done and he was discharged home on last Sunday but patient has been feeling tired, fatigued, dizzy, nausea and shortness of breath. These symptoms of persistent not relieving with any medication or position nonexcessive not exacerbated by an y position . No other association with any other symptoms such as chest pain, nausea is not associated with vomiting and dizziness not associated with headache. 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 Munoz and was referred to ER. HOSPITAL COURSE: Patient was admitted with the diagnosis of congestive heart failure. Patient was started with IV diuresis with Lasix 40 mg IV every 12 hours and patient responded to IV therapy very well. He also had echocardiogram done which showed grade 2 diastolic dysfunction but normal LV and normal appearing. Bioprosthetic aortic valve. Patient responded to the above therapy very well. His electrolytes were balanced and progressively he was mobilized. Patient is clinically stable, asymptomatic and will be discharged home on by mouth Lasix and potassium supplement. 5. Diastolic heart failure, small bilateral pleural effusions and small pericardial effusion. Patient's potassium was slightly low today, so KCl 40 mEq by mouth 1 dose given also his INR is 1.7 and he will restart taking his Coumadin again as of tonight. We'll continue all home medications and discharge him home and he will follow up with Dr. Munoz in one week. DISCHARGE MEDICATIONS: Please see below. ALLERGIES: Please see below. PHYSICAL EXAMINATION ON DISCHARGE: VITAL SIGNS: Please see below. GENERAL: Normal HEENT: PERRLA NECK: Supple CARDIOVASCULAR EXAMINATION: S1, S2, regular RESPIRATORY EXAMINATION: Clear to A&P. No rales, rhonchi ABDOMINAL EXAMINATION: Benign EXTREMITIES: Negative clubbing, cyanosis, edema SKIN: Normal NEUROLOGICAL EXAMINATION: . No focal motor or sensory deficit PSYCHIATRIC EXAMINATION: Normal LABORATORY DATA: Please see below. IMAGING: CONCLUSIONS: 1. Study is of rather limited technical quality. 2. Normal LV size with moderate left ventricular hypertrophy and likely normal LV systolic function and grade II diastolic dysfunction. 3. Normally appearing bioprosthesis in aortic position without stenosis or insufficiency. 4. No significant mitral and tricuspid valvular disease. 5. Unable to estimate central venous pressure but at least mild pulmonary hypertension. 6. Small posteriorly located pericardial effusion without any signs of cardiac compression PROGNOSIS: ACTIVITY: As tolerated. DIET: DASH DIET DISCHARGE PLAN: Follow Dr. Munoz as an outpatient DISPOSITION: . Home DISCHARGE INSTRUCTIONS: 1. As above. ITEMS TO FOLLOWUP ON ON OUTPATIENT: 1. As above. DISCHARGE CONDITION: Stable. TIME SPENT ON DISCHARGE: 42 minutes. Vital Signs/I&Os Vital Signs Date Time Temp Pulse Resp B/P (MAP) Pulse Ox O2 Delivery O2 Flow Rate FiO2 12/01/18 08:00 97.1 71 20 133/61 (85) 98 11/30/18 22:00 Room Air I&O- Last 24 Hours up to 6 AM 12/01/18 06:00 Intake Total 1620 ml Output Total 1175 ml Balance 445 ml Laboratory Data Labs 24H Laboratory Tests 2 11/30/18 11:39: Bedside Glucose (Misc Panel) 141H 11/30/18 16:34: Bedside Glucose (Misc Panel) 136H 11/30/18 20:11: Bedside Glucose (Misc Panel) 177H 12/01/18 04:48: Immature Granulocyte % (Auto) 0.9, White Blood Count 10.5H, Red Blood Count 4.33, Hemoglobin 12.2L, Hematocrit 37.2L, Mean Corpuscular Volume 85.9, Mean Corpuscular Hemoglobin 28.2, Mean Corpuscular Hemoglobin Concent 32.8, Red Cell Distribution Width 14.6H, Platelet Count 347, Neutrophils (%) (Auto) 73.1H, Lymphocytes (%) (Auto) 14.1L, Monocytes (%) (Auto) 10.2H, Eosinophils (%) (Auto) 1.5, Basophils (%) (Auto) 0.2, Neutrophils # (Auto) 7.7, Lymphocytes # (Auto) 1.5, Monocytes # (Auto) 1.1H, Eosinophils # (Auto) 0.2, Basophils # (Auto) 0.0, Nucleated Red Blood Cells % (auto) 0.0, Prothrombin Time 20.8H, Prothromb Time International Ratio 1.76, Anion Gap 10, Glomerular Filtration Rate 54.3, Blood Urea Nitrogen 28H, Creatinine 1.39H, Sodium Level 140, Potassium Level 3.3L, Chloride Level 102, Carbon Dioxide Level 28, Calcium Level 8.8, Aspartate Amino Transf (AST/SGOT) 19, Alanine Aminotransferase (ALT/SGPT) 22, Alkaline Phosphatase 71, Total Bilirubin 0.9, Total Protein 7.4, Albumin 3.1L, Albumin/Globulin Ratio 0.72L CBC/BMP Laboratory Tests 12/01/18 04:48 Red Blood Count 4.33, Mean Corpuscular Volume 85.9, Mean Corpuscular Hemoglobin 28.2, Mean Corpuscular Hemoglobin Concent 32.8, Red Cell Distribution Width 14.6 H, Neutrophils (%) (Auto) 73.1 H, Lymphocytes (%) (Auto) 14.1 L, Monocytes (%) (Auto) 10.2 H, Eosinophils (%) (Auto) 1.5, Basophils (%) (Auto) 0.2, Neutrophils # (Auto) 7.7, Lymphocytes # (Auto) 1.5, Monocytes # (Auto) 1.1 H, Eosinophils # (Auto) 0.2, Basophils # (Auto) 0.0, Calcium Level 8.8, Aspartate Amino Transf (A ST/SGOT) 19, Alanine Aminotransferase (ALT/SGPT) 22, Alkaline Phosphatase 71, Total Bilirubin 0.9, Total Protein 7.4, Albumin 3.1 L FSBS Laboratory Tests Test 11/30/18 11:39 11/30/18 16:34 11/30/18 20:11 Range/Units Bedside Glucose (Misc Panel) 141 136 177 80-115 MG/DL Microbiology Microbiology 11/28/18 Blood Culture - Preliminary, Resulted No Growth after 48 hours. All Specime... 11/28/18 Blood Culture - Preliminary, Resulted No Growth after 48 hours. All Specime... Discharge Medications Scheduled Amiodarone HCl (Amiodarone HCl) 200 Mg Tablet, 200 MG PO ASDIRECTED, (Reported) TAPERING DOSE STARTED ON 11/24/18. 2 TABS BID X 7 DAYS THEN 1 TAB BID X 7 DAYS THEN 1 DAILY X 7 DAYS. Aspirin (Aspir 81) 81 Mg Tablet.dr, 81 MG PO DAILY, (Reported) Atorvastatin Calcium (Atorvastatin Calcium) 40 Mg Tablet, 40 MG PO DAILY, (Reported) Canagliflozin (Invokana) 300 Mg Tablet, 300 MG PO DAILY, (Reported) Ferrous Gluconate (Ferrous Gluconate) 324 Mg Tablet, 324 MG PO BIDWM, (Reported) Folic Acid (Folic Acid) 1 Mg Tablet, 1 MG PO DAILY, (Reported) Furosemide (Furosemide) 20 Mg Tablet, 20 MG PO DAILY, (Reported) Gabapentin (Gabapentin) 400 Mg Capsule, 400 MG PO BID, (Reported) Levothyroxine Sodium (Levothyroxine Sodium) 75 Mcg Tablet, 75 MCG PO DAILY, (Reported) Metoprolol Tartrate (Metoprolol Tartrate) 25 Mg Tablet, 25 MG PO BID, (Reported) Potassium Chloride (Potassium Chloride) 10 Meq Tab.er.prt, 10 MEQ PO DAILY, (Reported) Sitagliptin Phos/Metformin HCl (Janumet 50-1,000 mg Tablet) 1 Each Tablet, 1 TAB PO BID, (Reported) Valsartan (Valsartan) 40 Mg Tablet, 20 MG PO DAILY, (Reported) Warfarin Sodium (Warfarin Sodium) 2 Mg Tablet, 4 MG PO QHS, (Reported) Scheduled PRN Acetaminophen (Acetaminophen) 325 Mg Tablet, 650 MG PO Q4H PRN for PAIN, (Reported) Docusate Sodium (Colace) 100 Mg Capsule, 100 MG PO BID PRN for LOOSE STOOL, (Reported) Oxycodone HCl/Acetaminophen (Oxycodone-Acetaminophen 5-325) 1 Each Tablet, 1 TAB PO Q4H PRN for PAIN, (Reported) Allergies Coded Allergies: No Known Allergies (Unverified , 11/28/18) MARIVEL CLARKE MD Dec 01, 2018 08:28
[2018-12-01] MEDS ORDERED: FUROSEMIDE 20 MG TAB PO SCH (09:00)
[2018-12-01] MEDS ORDERED: AMIODARONE 200 MG TAB (PACERONE) PO SCH (09:00)
[2018-12-01] MEDS: DOCUSATE SODIUM 100 MG CAP PO SCH (09:00)
[2018-12-01] MEDS ORDERED: POTASSIUM CHLORIDE 10 MEQ SR TABLET PO SCH (09:00)
[2018-12-01] MEDS: ATORVASTATIN 20 MG TAB PO SCH (09:08)
[2018-12-01] MEDS: GABAPENTIN 400 MG CAP PO SCH (09:08)
[2018-12-01] MEDS: FOLIC ACID 1 MG TAB PO SCH (09:08)
[2018-12-01] MEDS: VALSARTAN 40MG TABLET (DIOVAN) PO SCH (09:09)
[2018-12-01 09:10] VITALS: BP 133/61
[2018-12-01] MEDS: METOPROLOL TART 25 MG TABLET PO SCH (09:10)
[2018-12-01] MEDS: ASPIRIN 81 MG ENTERIC TAB PO SCH (09:10)
[2018-12-03 08:57] LABS: AMIODARONE (CORDARONE) 1.3 ug/mL (1.0-2.5); NORAMIODARONE LEVEL 0.3 ug/mL (1.0-2.5)
[2018-12-08] MEDS ORDERED: AMIODARONE 200 MG TAB (PACERONE) PO SCH (09:00)
== END 2018-12-01 09:22 | disposition home or self-care (01) | DRG 292 ==
LOC: M ED 10:46 → M ED INP 16:19 → M PCU 18:35 → OBSVTOIN 11-30 09:53 → INTOOBSV 11-30 09:53
PROVIDERS: ADMIT Internal Medicine; ATTEND Internal Medicine
DX: I11.0 Hypertensive heart disease with heart failure (principal); I31.9 Disease of pericardium, unspecified; I50.33 Acute on chronic diastolic (congestive) heart failure; Z95.1 Presence of aortocoronary bypass graft; I25.10 Atherosclerotic heart disease of native coronary artery without angina pectoris; E78.5 Hyperlipidemia, unspecified; E11.9 Type 2 diabetes mellitus without complications; Z79.899 Other long term (current) drug therapy; Z79.82 Long term (current) use of aspirin

== ENCOUNTER 2018-12-03 09:18 | Emergency (ER) | payer MEDICARE ==
[~2018-12-03] VITALS: Ht 177.8 cm; Wt 103.4 kg
[~2018-12-03 09:18] MED LIST: ACET-908 PO; AMIO200T PO; ASPI81TA85 PO; ATOR40TA75 PO; COLA100C5 PO; D-50CAP PO; FERR325T16 PO; FOLI1TAB11 PO; FURO20TA2 PO; GABA-845 PO; INVO300T PO; JANU50TA8 PO; LEVO50TA5 PO; LEVO75TA4 PO; METO25TA4 PO; OXYC1TAB23 PO; POTA10TA67 PO; VALS1TAB49 PO; WARF4TAB51 PO
--- NOTE | 2018-12-03 09:55 | REP ---
Chest one-view HISTORY: Cough Comparison: 11/29/2018 Linear density is present in the left lower lobe consistent with atelectasis. The right lung is clear. The cardiac silhouette is enlarged. The pulmonary vasculature is normal in appearance. Impression: 1. Left lower lobe atelectasis. 2. Cardiomegaly. Electronically Signed by Dar Johnson MD 12/03/2018 09:47 A
[2018-12-03 10:11] LABS: INR 1.76; PROTHROMBIN TIME 20.8 SECONDS (12.1-14.4)
[2018-12-03 11:20] LABS: ALBUMIN 3.1 GM/DL (3.2-5.2); ALT/SGPT 27 U/L (12-78); BILIRUBIN,DIRECT 0.2 MG/DL (0.0-0.2); BILIRUBIN,TOTAL 0.7 MG/DL (0.2-1.0); BLOOD UREA NITROGEN 21 MG/DL (7-18); CALCIUM LEVEL 8.8 MG/DL (8.8-10.2); CARBON DIOXIDE LEVEL 23 MEQ/L (21-32); CHLORIDE LEVEL 105 MEQ/L (98-107); CPK CREATINE PHOSPHOKINASE 66 U/L (39-308); CREATININE FOR GFR 1.27 MG/DL (0.70-1.30); GLOMERULAR FILTRATION RATE > 60.0 (>49); GLUCOSE, FASTING 168 MG/DL (70-100); MB/CK RELATIVE INDEX 2.27 (< OR =4); NT-PRO BNP 1612 PG/ML (<125); POTASSIUM SERUM 4.3 MEQ/L (3.5-5.1); SODIUM LEVEL 138 MEQ/L (136-145); TOTAL PROTEIN 7.2 GM/DL (6.4-8.2); TROPONIN I 0.04 NG/ML (< 0.10)
[2018-12-03 11:21] LABS: BASO % 0.1 % (0.0-1.0); EOS # 0.1 10^3/uL (0.0-0.50); EOS % 0.7 % (0.0-3.0); HEMATOCRIT 40.6 % (42.0-52.0); HEMOGLOBIN 12.9 g/dl (13.5-17.5); LYMPH # 1.4 10^3/uL (1.5-4.5); LYMPH % 9.3 % (24.0-44.0); MEAN CORPUSCULAR HEMOGLOBIN 28.3 pg (27.0-33.0); MEAN CORPUSCULAR HGB CONC 31.8 g/dl (32.0-36.5); MONO # 1.1 10^3/uL (0.0-0.8); MONO % 7.6 % (0.0-5.0); NEUTROPHILS # 12.2 10^3/uL (1.8-7.7); NEUTROPHILS % 81.6 % (36.0-66.0); PLATELET COUNT, AUTOMATED 393 10^3/uL (150-450); RED BLOOD COUNT 4.56 10^6/uL (4.30-6.10); WHITE BLOOD COUNT 14.9 10^3/uL (4.0-10.0)
--- NOTE | 2018-12-03 11:49 | REP ---
RIGHT LOWER EXTREMITY DUPLEX VEINS: HISTORY: Swelling. There are no filling defects in the deep venous system. The deep venous system is patent. IMPRESSION: There is no deep venous thrombosis. Electronically Signed by Dar Johnson MD 12/03/2018 11:56 A
[2018-12-03] MEDS ORDERED: ISOVUE-370 76% 100ML VIAL (Q9967) As Ordered ONE (12:20)
--- NOTE | 2018-12-03 13:32 | REP ---
CT ANGIO CHEST: HISTORY: Shortness of breath. CONTRAST: Isovue 370, 75 mL. COMPARISON: 11/28/2018. There are no filling defects in the main , right and left pulmonary arteries or their branches. Patchy density is present in the left lower lobe consistent with atelectasis or infiltrate that is increased compared to the previous study. A moderate sized left pleural effusion is present increased compared to the previous study. Linear density is present in the right lower lobe consistent with atelectasis or scar. There has been resolution of the previously noted small right pleural effusion. A small amount of pericardial fluid is present unchanged compared to the previous study. A small amount of epicardial air is present unchanged compared to the previous study. Atherosclerotic calcification is present in the thoracic aorta. 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 Degenerative change is present in the spine. A 2 cm right adrenal nodule is present. IMPRESSION: 1. There is no pulmonary embolism. 2. Left lower lobe atelectasis or infiltrate increased compared to the previous study. 3. Right lower lobe atelectasis or scar. 4. Moderate sized left pleural effusion increased compared to the previous study. 5. There is a small amount of pericardial fluid and epicardial air unchanged compared to the previous study. Electronically Signed by Dar Johnson MD 12/03/2018 01:35 P
[2018-12-03 14:15] VITALS: BP 130/77
[2018-12-03] MEDS ORDERED: FUROSEMIDE 40 MG/4 ML VIAL (J1940) IV ONE ×2 (14:15)
--- NOTE | 2018-12-03 15:57 | ED PDOC ---
Post-Departure Follow-Up dr darion ayon faxed formal report of cta chest for fu Chinmay Pichardo MD Dec 03, 2018 15:56
--- NOTE | 2018-12-04 07:42 | ECGEPIP ---
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
== END 2018-12-03 14:37 | disposition home or self-care (01) ==
LOC: M ED 09:18
DX: J90 Pleural effusion, not elsewhere classified (principal); I50.9 Heart failure, unspecified; I51.7 Cardiomegaly; I44.0 Atrioventricular block, first degree; E11.9 Type 2 diabetes mellitus without complications; E78.5 Hyperlipidemia, unspecified; Z95.1 Presence of aortocoronary bypass graft; Z95.2 Presence of prosthetic heart valve; Z79.899 Other long term (current) drug therapy; Z79.01 Long term (current) use of anticoagulants; Z79.82 Long term (current) use of aspirin
CPT/HCPCS: 36415; 71045; 71275; 80048; 80076; 82550; 82553; 83880; 84443; 84484; 85025; 85610; 87040; 93005; 93041; 93971; 94760; 96374; 99285; J1940; Q9967

== ENCOUNTER 2018-12-12 18:20 | Emergency (ER) | payer MEDICARE ==
[~2018-12-12] VITALS: Ht 177.8 cm; Wt 100.0 kg
[2018-12-12] MEDS ORDERED: FURO40TA2 PO (18:42)
[2018-12-12] MEDS ORDERED: SPIR-10 PO (18:42)
[2018-12-12] MEDS ORDERED: METOCLOPRAMIDE INJ 10MG/2ML VIAL (J2765) IV ONE (19:30)
[2018-12-12] MEDS ORDERED: NS 500 ML IV ONE (19:30)
[2018-12-12] MEDS ORDERED: dexameTHASONE 20 MG/5 ML VIAL (J1100) IV ONE (19:30)
[2018-12-12] MEDS ORDERED: MECLIZINE 25 MG TABLET PO ONE (19:30)
[2018-12-12 19:31] LABS: BASO % 0.2 % (0.0-1.0); EOS # 0.2 10^3/uL (0.0-0.50); EOS % 2.7 % (0.0-3.0); HEMATOCRIT 36.7 % (42.0-52.0); HEMOGLOBIN 12.1 g/dl (13.5-17.5); LYMPH # 1.5 10^3/uL (1.5-4.5); LYMPH % 17.2 % (24.0-44.0); MEAN CORPUSCULAR HEMOGLOBIN 28.6 pg (27.0-33.0); MEAN CORPUSCULAR VOLUME 86.8 fl (80.0-96.0); MONO # 0.9 10^3/uL (0.0-0.8); MONO % 9.9 % (0.0-5.0); NEUTROPHILS # 6.1 10^3/uL (1.8-7.7); NEUTROPHILS % 69.5 % (36.0-66.0); PLATELET COUNT, AUTOMATED 322 10^3/uL (150-450); RED BLOOD COUNT 4.23 10^6/uL (4.30-6.10); WHITE BLOOD COUNT 8.8 10^3/uL (4.0-10.0)
[2018-12-12 19:44] LABS: PROTHROMBIN TIME 31.8 SECONDS (12.1-14.4)
[2018-12-12 19:45] LABS: PARTIAL THROMBOPLASTIN TIME 55.7 SECONDS (25.4-37.6)
[2018-12-12 20:07] LABS: CALCIUM LEVEL 8.4 MG/DL (8.8-10.2); CREATININE FOR GFR 1.34 MG/DL (0.70-1.30); GLOMERULAR FILTRATION RATE 56.6 (>49); POTASSIUM SERUM 3.4 MEQ/L (3.5-5.1)
[2018-12-12] MEDS ORDERED: ACETAMINOPHEN TAB 650MG DOSE (2X325MG) PO ONE (20:30)
[2018-12-12] MEDS ORDERED: MECL-68 PO (21:19)
[2018-12-12 21:30] VITALS: BP 137/72
[2018-12-13] MEDS ORDERED: MECL1CHW PO (01:40)
[2018-12-13] MEDS ORDERED: WARF4TAB51 PO (04:21)
--- NOTE | 2018-12-13 13:18 | ECGEPIP ---
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
== END 2018-12-12 21:43 | disposition home or self-care (01) ==
LOC: M ED 18:20
DX: H83.09 Labyrinthitis, unspecified ear (principal); E11.9 Type 2 diabetes mellitus without complications; I11.0 Hypertensive heart disease with heart failure; I50.9 Heart failure, unspecified; I25.10 Atherosclerotic heart disease of native coronary artery without angina pectoris; E78.5 Hyperlipidemia, unspecified; Z79.899 Other long term (current) drug therapy; Z79.82 Long term (current) use of aspirin; Z79.01 Long term (current) use of anticoagulants

== ENCOUNTER 2018-12-13 01:09 | Inpatient (IN) | payer MEDICARE ==
[~2018-12-13] VITALS: Ht 177.8 cm; Wt 98.5 kg
[~2018-12-13 01:09] MED LIST changes: +FURO40TA2 PO; +MECL-68 PO; +SPIR-10 PO
[2018-12-13] MEDS ORDERED: MECL1CHW PO (01:40)
[2018-12-13] MEDS ORDERED: ISOVUE-370 76% 100ML VIAL (Q9967) As Ordered ONE (02:19)
[2018-12-13 02:33] LABS: ABG BASE EXCESS -1.7 (-2.0-2.0); ABG HCO3 21.2 MEQ/L (22.0-26.0); ABG O2 SATURATION 95.3 % (95.0-99.0); ABG PARTIAL PRESSURE CO2 30.5 mmHg (35.0-45.0); ABG PARTIAL PRESSURE O2 74.5 mmHg (75.0-100.0); ABG STANDARD HCO3 23.1 MEQ/L (22.0-26.0); ABG TOTAL CO2 22.1 MEQ/L (23.0-31.0)
[2018-12-13 02:46] LABS: INR 2.66; PROTHROMBIN TIME 28.9 SECONDS (12.1-14.4)
[2018-12-13 02:47] LABS: PARTIAL THROMBOPLASTIN TIME 51.2 SECONDS (25.4-37.6)
--- NOTE | 2018-12-13 03:04 | REPVR ---
EXAM: CT Angiography Chest With Contrast EXAM DATE/TIME: 12/13/2018 2:13 AM CLINICAL HISTORY: 68 years old, male; Signs and symptoms; Dyspnea; Prior surgery; Surgery date: 6+ months; Surgery type: Cardiac many; Additional info: Dysp TECHNIQUE: Imaging protocol: Axial computed tomographic angiography images of the chest with intravenous contrast using CT angiography protocol. Coronal and sagittal reformatted images were created and reviewed. 3D rendering: MIP reconstructed images were created and reviewed. Radiation optimization: All CT scans at this facility use at least one of these dose optimization techniques: automated exposure control; mA and/or kV adjustment per patient size (includes targeted exams where dose is matched to clinical indication); or iterative reconstruction. Contrast material: ISO; Contrast volume: 75 ml; Contrast route: AC; COMPARISON: No relevant prior studies available. FINDINGS: Pulmonary arteries: The main pulmonary artery measures 30 mm. No central pulmonary embolism is identified. Aorta: The ascending thoracic aorta measures 35 mm. Lungs: Mild left lower lobe compressive atelectasis and possible minimal infiltrate. Minimal fibro-atelectatic change in the left upper lobe and lingula with slight prominence of interstitium. Motion artifact in the lungs with image degradation. Pleural space: Mild left pleural effusion. Heart: Status post sternotomy and aortic valve replacement. Gallbladder and bile ducts: The gallbladder is contracted with no stones. Adrenals: Right adrenal fatty nodule measuring 2.6 x 2.1 x 2.4 cm. Lymph nodes: Unremarkable. No enlarged lymph nodes. Bones/joints: Unremarkable. No acute fracture. Soft tissues: Unremarkable. IMPRESSION: 1. Mild left pleural effusion with mild left lower lobe compressive atelectasis and possible minimal infiltrate. 2. Slight generalized prominence of the interstitium with minimal fibro-atelectatic change in the left upper lobe and lingula. 3. Status post sternotomy and aortic valve replacement. 4. Motion artifact in the lungs with image degradation. No central pulmonary embolism is identified. Electronically signed by: James Hartmann On 12/13/2018 03:03:48 AM
[2018-12-13 03:18] LABS: CK-MB VALUE MASS 1.3 NG/ML (<3.6); CPK CREATINE PHOSPHOKINASE 57 U/L (39-308); MB/CK RELATIVE INDEX 2.28 (< OR =4); NT-PRO BNP 1141 PG/ML (<125); TROPONIN I < 0.02 NG/ML (< 0.10)
[2018-12-13] MEDS ORDERED: FUROSEMIDE 100 MG/10 ML VIAL (J1940) IV ONE (03:30)
[2018-12-13] MEDS ORDERED: WARF4TAB51 PO (04:21)
[2018-12-13] MEDS ORDERED: PERCOCET 5MG/325MG TAB PO PRN (04:30)
[2018-12-13] MEDS ORDERED: ACETAMINOPHEN TAB 650MG DOSE (2X325MG) PO PRN (04:30)
[2018-12-13] MEDS ORDERED: GLUCAGON FOR INJ 1 MG VIAL (J1610) SC PRN (04:45)
[2018-12-13] MEDS ORDERED: GLUCOSE 4 GM CHEW TABLET PO PRN (04:45)
[2018-12-13] MEDS ORDERED: DEXTROSE 50% 50 ML SYRINGE IV PRN (04:45)
[2018-12-13] MEDS ORDERED: PILL CUTTER 1 EACH XX PRN (05:00)
[2018-12-13] MEDS: LEVOTHYROXINE 75MCG TABLET (0.075MG) PO SCH (05:49)
[2018-12-13 06:13] LABS: INR 2.41; PROTHROMBIN TIME 26.7 SECONDS (12.1-14.4)
--- NOTE | 2018-12-13 07:43 | HPE ---
DATE OF ADMISSION: 12/13/2018 PRIMARY CARE PROVIDER: Dr. Rica Albright. ATTENDING PHYSICIAN: Dr. Valenzuela. CHIEF COMPLAINT: Shortness of breath. HISTORY OF PRESENT ILLNESS: The patient is a 68-year-old white male with several current medical conditions, came to the emergency room for evaluation of shortness of breath. History provided by himself as well as by review of chart. Patient has history of coronary artery disease as well as vertebral stenosis and he had a cardiac bypass as well as multivalve replacement in [place] at [facility] on 11/20/2018. Actually he had been hospitalized here recently from 11/28 to 12/01/2018 for shortness of breath. Also he came back to the emergency room 12/03/2018 after discharge from the hospital for the same problem. He was then worked up in the emergency room and discharged home. Actually he followed up with Dr. Munoz in the office just 2 days ago and came back today initially with some dizziness and he was evaluated in the emergency room and discharged home. He came back to the hospital because of difficulty breathing. IV Lasix was given in the emergency room. Medicine staff was called for admission. REVIEW OF SYSTEMS: Denies fever. No chills. No headache. No blurry vision. Positive shortness of breath. No cough. No wheezing. No hemoptysis. No chest pain. No nausea. No vomiting. No abdominal pain. No diarrhea. No tingling, numbness, weakness in arms or lower extremity. All other systems reviewed were negative. PAST MEDICAL HISTORY: 1. Type 2 diabetes. 2. Hypertension. 3. Dyslipidemia. 4. Coronary artery disease status post coronary artery bypass graft (CABG). 5. Vertebral stenosis status post valve replacement. PAST SURGICAL HISTORY: 1. Appendectomy. 2. Cardiac bypass surgery. 3. Multivalve replacement. ALLERGIES: No known drug allergies. SOCIAL HISTORY: He has a 2 pack tobacco use for about 10 years, quit in 2003. No alcohol abuse. No elicit drug abuse. He lives at home. He is FULL CODE. FAMILY HISTORY: No family history of coronary disease or diabetes. MEDICATIONS: - amiodarone 200 mg by mouth daily - aspirin 81 mg by mouth daily - atorvastatin 40 mg by mouth daily - Invokana 300 mg daily - ferrous sulfate 324 mg by mouth daily - Lasix 40 mg by mouth daily - Neurontin 400 mg by mouth twice daily - Synthroid 75 mcg by mouth daily - metoprolol 25 mg by mouth twice daily - Janumet twice daily - Losartan 40 mg by mouth daily - spironolactone 50 mg by mouth daily - Coumadin 2 mg by mouth and 4 mg by mouth alternative PHYSICAL EXAMINATION: Vitals: Temperature 97.6, heart rate 86, respiratory rate 20, blood pressure 140/72, oxygen saturation is 97% on 2 liters oxygen. General: He is awake, alert, oriented times three. He is in no acute distress. HEENT: Atraumatic. Pupils equal, round, reactive to light. Extraocular muscles intact. No jaundice. Ear, nose, throat normal. Mouth: Not dry. Neck: No jugular venous distention (JVD), no bruits. Lungs: Clear . No wheezing, no crackles. Decreased breath sounds. Heart: S1, S2, regular. No murmur. Abdomen: Positive, nontender. Extremities: No edema in bilateral lower extremities. Neurologically: Nonfocal. Skin: No rash. Psychologically: No acute psychosis. LABS: CBC showed WBC 8.8, hemoglobin and hemoglobin 12/36, platelets 233. Sodium 140, potassium 3.4, chloride 103, bicarbonate 26, BUN 30, creatinine 1.2, glucose 132. BNP is 1141. CT angiogram of the chest showed left pleural effusion which is chronic. No evidence of pneumonia or blood clot. IMPRESSION: 1. History of acute on chronic CHF which is mild. 2. Type 2 diabetes. 3. Hypertension. 4. Dyslipidemia. 5. Carotid disease status post coronary artery bypass graft (CABG) as well as multivalve replacement. PLAN: Patient will be admitted to the progressive care unit (PCU). Will continue his current medication. Dr. Munoz will come to see patient in the morning. BANDAR
[2018-12-13] MEDS: FERROUS GLUCONATE 324 MG TAB PO SCH ×2 (08:00→17:18)
[2018-12-13] MEDS: VALSARTAN 40MG TABLET (DIOVAN) PO SCH (09:00)
[2018-12-13] MEDS: HumaLOG INSULIN (NovoLOG) PER UNIT SC SCH ×4 (09:10→21:00)
[2018-12-13 10:30] VITALS: BP 130/67
[2018-12-13] MEDS: FUROSEMIDE 40 MG TAB PO SCH (10:48)
[2018-12-13] MEDS: AMIODARONE 200 MG TAB (PACERONE) PO SCH (10:48)
[2018-12-13] MEDS: DOCUSATE SODIUM 100 MG CAP PO SCH ×2 (10:48→21:06)
[2018-12-13] MEDS: ASPIRIN 81 MG ENTERIC TAB PO SCH (10:49)
[2018-12-13] MEDS: METOPROLOL TART 25 MG TABLET PO SCH ×2 (10:49→21:07)
[2018-12-13] MEDS: FOLIC ACID 1 MG TAB PO SCH (10:49)
[2018-12-13] MEDS: GABAPENTIN 400 MG CAP PO SCH ×2 (11:14→21:06)
[2018-12-13 13:00] VITALS: BP 109/62
[2018-12-13] MEDS: WARFARIN SOD 2 MG TAB PO SCH (17:18)
[2018-12-13 18:00] VITALS: BP 113/59
[2018-12-13 20:28] VITALS: BP 144/72
[2018-12-13] MEDS: ATORVASTATIN 20 MG TAB PO SCH (21:06)
[2018-12-14 00:03] VITALS: BP 137/68
[2018-12-14 04:27] VITALS: BP 155/70
[2018-12-14 04:28] LABS: HEMATOCRIT 38.2 % (42.0-52.0); HEMOGLOBIN 12.3 g/dl (13.5-17.5); MEAN CORPUSCULAR HGB CONC 32.2 g/dl (32.0-36.5); PLATELET COUNT, AUTOMATED 346 10^3/uL (150-450); RED BLOOD COUNT 4.39 10^6/uL (4.30-6.10); WHITE BLOOD COUNT 11.8 10^3/uL (4.0-10.0)
[2018-12-14 04:49] LABS: CALCIUM LEVEL 8.5 MG/DL (8.8-10.2); CREATININE FOR GFR 1.28 MG/DL (0.70-1.30); GLOMERULAR FILTRATION RATE 59.7 (>49); POTASSIUM SERUM 3.7 MEQ/L (3.5-5.1)
[2018-12-14] MEDS: LEVOTHYROXINE 75MCG TABLET (0.075MG) PO SCH (06:08)
[2018-12-14 08:00] VITALS: BP 131/68
[2018-12-14] MEDS: HumaLOG INSULIN (NovoLOG) PER UNIT SC SCH ×4 (08:09→20:24)
[2018-12-14] MEDS: FOLIC ACID 1 MG TAB PO SCH (08:10)
[2018-12-14] MEDS: FERROUS GLUCONATE 324 MG TAB PO SCH ×2 (08:10→17:11)
[2018-12-14] MEDS: AMIODARONE 200 MG TAB (PACERONE) PO SCH (08:10)
[2018-12-14] MEDS: GABAPENTIN 400 MG CAP PO SCH ×2 (08:10→20:14)
[2018-12-14] MEDS: DOCUSATE SODIUM 100 MG CAP PO SCH ×2 (08:10→20:14)
[2018-12-14] MEDS: ASPIRIN 81 MG ENTERIC TAB PO SCH (08:11)
[2018-12-14] MEDS: METOPROLOL TART 25 MG TABLET PO SCH ×2 (08:11→20:14)
[2018-12-14] MEDS: VALSARTAN 40MG TABLET (DIOVAN) PO SCH (08:12)
[2018-12-14] MEDS: FUROSEMIDE 40 MG TAB PO SCH (08:12)
--- NOTE | 2018-12-14 09:04 | IPNPDOC ---
Subjective Date Seen The patient was seen on 12/14/18. Subjective Chief Complaint/HPI Patient is still feeling short of breath explained that is a slight improvement since he came in. No chest pain General: Denies: ROS Unobtainable, Chills, Night Sweats, Fatigue, Malaise, Normal Appetite, Other Symptoms Constitutional: Denies: Chills, Fever, Malaise, Night Sweats, Weakness, Fatigue, Weight Loss, Lethargy, Other Eyes: Denies: Pain, Vision change, Conjunctivae inflammation, Eyelid inflammation, Redness, Other ENT: Denies: Head Aches, Ear Pain, Dysphagia, Sinus Congestion, Post Nasal Drip, Sore Throat, Epistaxis, Other Symptoms Skin: Denies: Rash, Lesions, Jaundice, Bruising, Itching, Dry, Breakdown, Nail Changes, Other Pulmonary: Reports: Dyspnea Cardiovascular: Denies: Chest Pain, Palpitations, Orthopnea, Paroxysmal Noc. Dyspnea, Edema, Lt Headedness, Other Symptoms Gastrointestinal: Denies: Nausea, Vomiting, Abdominal Pain, Diarrhea, Constip ation, Melena, Hematochezia, Other Symptoms Genitourinary: Denies: Dysuria, Frequency, Incontinence, Hematuria, Retention, Other Symptoms Hematologic: Denies: Bruising, Bleeding Excessively, Petecchia, Purpura, Enlarged Lymph Nodes, Other Hematologic Endocrine: Denies: Polydipsia, Polyphagia, Polyuria, Heat Intolerance, Cold Intolerance, Other Endocrine Sx Musculoskeletal: Denies: Neck Pain, Back Pain, Shoulder Pain, Arm Pain, Hand Pain, Leg Pain, Foot Pain, Joint Pain, Muscle Pain, Spasms, Other Symptoms Neurological: Denies: Weakness, Numbness, Incoordination, Change in speech, Con fusion, Seizures, Other Symptoms Psych: Denies: Mood Normal, Anxiety, Depression, Memory Issues, Thoughts of Self Harm, Anger, Thoughts of Harming Other, Other Psych Objective Physical Examination General Exam: Negative: Alert, Cooperative, No Acute Distress, Mild Distress, Moderate Distress, Severe Distress, Other Eye Exam: Negative: PERRLA, Conjunctiva & lids normal, EOMI, Sclera icteric, Ptosis, Other Eye Symptoms ENT Exam: Negative: Atraumatic, Mucous membr. moist/pink, Pharynx Normal, Tongue Midline, Pharyngeal Edema, Nares Patent, Tympanic Membranes Normal, Ext Auditory Canal Nml, Pinna Normal, Other ENT Neck Exam: Negative: Supple, JVD, thyromegaly, +2 carotid pulse wo bruit, Lymphadenopathy, Other Chest Exam: Positive: Diminished, Other (crackles at bilateral bases); Negative: Clear to auscultation, Normal air movement, Rales, Rhonchi, Wheezing Heart Exam: Positive: Irregular Rhythm, Normal S1, Normal S2 Telemetry: Positive: Atrial fibrillation Abdomen Exam: Positive: Normal bowel sounds Assessment /Plan Problems (1) CHF (congestive heart failure) Status: Acute Problem Text: Exacerbation of CHF Change Lasix to 40 mg IV twice a day to reduce volume overload INR is therapeutic,Continue Coumadin Continue all home meds Closely monitor I&O's and tele monitor Patient is out of bed Possible discharge in a day or 2 on by mouth diuretics Plan/VTE VTE Prophylaxis Ordered?: Yes VS, I&O, 24H, Fishbone Vital Signs/I&O Vital Signs Date Time Temp Pulse Resp B/P (MAP) Pulse Ox O2 Delivery O2 Flow Rate FiO2 12/14/18 08:12 131/68 12/14/18 08:11 62 12/14/18 08:00 97.6 20 98 12/13/18 10:30 1.0 12/13/18 09:56 Nasal Cannula I&O- Last 24 Hours up to 6 AM 12/14/18 06:00 Intake Total 740 ml Output Total 1950 ml Balance -1210 ml Laboratory Data 24H LABS Laboratory Tests 2 12/13/18 11:53: Bedside Glucose (Misc Panel) 173H 12/13/18 17:10: Bedside Glucose (Misc Panel) 147H 12/13/18 20:32: Bedside Glucose (Misc Panel) 208H 12/14/18 04:09: Nucleated Red Blood Cells % (auto) 0.0, Anion Gap 6L, Glomerular Filtration Rate 59.7, Blood Urea Nitrogen 30H, Creatinine 1.28, Sodium Level 142, Potassium Level 3.7, Chloride Level 105, Carbon Dioxide Level 31, Calcium Level 8.5L CBC/BMP Laboratory Tests 12/14/18 04:09 Red Blood Count 4.39, Mean Corpuscular Volume 87.0, Mean Corpuscular Hemoglobin 28.0, Mean Corpuscular Hemoglobin Concent 32.2, Red Cell Distribution Width 14.4, Calcium Level 8.5 L MARIVEL CLARKE MD Dec 14, 2018 09:04
[2018-12-14 12:00] VITALS: BP 129/58
[2018-12-14 16:20] VITALS: BP 135/78
[2018-12-14] MEDS: WARFARIN SOD 4 MG TAB PO SCH (17:11)
[2018-12-14] MEDS: FUROSEMIDE 40 MG/4 ML VIAL (J1940) IV SCH (17:11)
[2018-12-14] MEDS: ATORVASTATIN 20 MG TAB PO SCH (20:14)
[2018-12-14 22:00] VITALS: BP 141/76
[2018-12-15 06:00] VITALS: BP 146/75
[2018-12-15] MEDS: LEVOTHYROXINE 75MCG TABLET (0.075MG) PO SCH (06:07)
[2018-12-15 06:08] LABS: BASO % 0.3 % (0.0-1.0); EOS # 0.4 10^3/uL (0.0-0.50); EOS % 3.9 % (0.0-3.0); HEMATOCRIT 38.4 % (42.0-52.0); HEMOGLOBIN 12.4 g/dl (13.5-17.5); LYMPH # 1.8 10^3/uL (1.5-4.5); LYMPH % 18.9 % (24.0-44.0); MEAN CORPUSCULAR HEMOGLOBIN 27.6 pg (27.0-33.0); MEAN CORPUSCULAR HGB CONC 32.3 g/dl (32.0-36.5); MEAN CORPUSCULAR VOLUME 85.3 fl (80.0-96.0); MONO # 0.9 10^3/uL (0.0-0.8); MONO % 9.8 % (0.0-5.0); NEUTROPHILS # 6.2 10^3/uL (1.8-7.7); NEUTROPHILS % 66.7 % (36.0-66.0); PLATELET COUNT, AUTOMATED 294 10^3/uL (150-450); WHITE BLOOD COUNT 9.3 10^3/uL (4.0-10.0)
[2018-12-15 06:33] LABS: ALBUMIN 3.1 GM/DL (3.2-5.2); BILIRUBIN,TOTAL 0.5 MG/DL (0.2-1.0); CALCIUM LEVEL 8.6 MG/DL (8.8-10.2); CREATININE FOR GFR 1.44 MG/DL (0.70-1.30); GLOMERULAR FILTRATION RATE 52.1 (>49); MAGNESIUM LEVEL 1.9 MG/DL (1.8-2.4); POTASSIUM SERUM 3.2 MEQ/L (3.5-5.1); TOTAL PROTEIN 7.2 GM/DL (6.4-8.2)
[2018-12-15] MEDS: GABAPENTIN 400 MG CAP PO SCH ×2 (08:26→21:13)
[2018-12-15] MEDS: HumaLOG INSULIN (NovoLOG) PER UNIT SC SCH ×4 (08:26→21:00)
[2018-12-15] MEDS: VALSARTAN 40MG TABLET (DIOVAN) PO SCH (08:27)
[2018-12-15] MEDS: METOPROLOL TART 25 MG TABLET PO SCH ×2 (08:27→21:13)
[2018-12-15] MEDS: ASPIRIN 81 MG ENTERIC TAB PO SCH (08:27)
[2018-12-15] MEDS: DOCUSATE SODIUM 100 MG CAP PO SCH ×2 (08:27→21:12)
[2018-12-15] MEDS: AMIODARONE 200 MG TAB (PACERONE) PO SCH (08:27)
[2018-12-15] MEDS: FERROUS GLUCONATE 324 MG TAB PO SCH ×2 (08:27→17:27)
[2018-12-15] MEDS: FOLIC ACID 1 MG TAB PO SCH (08:27)
[2018-12-15] MEDS: FUROSEMIDE 40 MG/4 ML VIAL (J1940) IV SCH ×2 (08:28→17:28)
[2018-12-15 14:00] VITALS: BP 127/66
[2018-12-15] MEDS: POTASSIUM CHLORIDE 10 MEQ SR TABLET PO SCH ×2 (17:27→21:11)
[2018-12-15] MEDS: WARFARIN SOD 2 MG TAB PO SCH (17:27)
--- NOTE | 2018-12-15 20:10 | IPNPDOC ---
Text Note Date of Service The patient was seen on 12/15/18. NOTE Pt was seen and examined at bedside. No acute events overnight. Denies any new complaints. Physical Examination General Exam: Negative: Alert, Cooperative, No Acute Distress, Mild Distress, Moderate Distress, Severe Distress, Other Eye Exam: Negative: PERRLA, Conjunctiva & lids normal, EOMI, Sclera icteric, Ptosis, Other Eye Symptoms ENT Exam: Negative: Atraumatic, Mucous membr. moist/pink, Pharynx Normal, Tongue Midline, Pharyngeal Edema, Nares Patent, Tympanic Membranes Normal, Ext Auditory Canal Nml, Pinna Normal, Other ENT Neck Exam: Negative: Supple, JVD, thyromegaly, +2 carotid pulse wo bruit, Lymphadenopathy, Other Chest Exam: Positive: Diminished, Other (crackles at bilateral bases); Negative: Clear to auscultation, Normal air movement, Rales, Rhonchi, Wheezing Heart Exam: Positive: Irregular Rhythm, Normal S1, Normal S2 Telemetry: Positive: Atrial fibrillation Abdomen Exam: Positive: Normal bowel sounds Vital Signs Date Time Temp Pulse Resp B/P (MAP) Pulse Ox O2 Delivery O2 Flow Rate FiO2 12/15/18 22:00 96.6 66 16 127/72 (90) 96 12/15/18 21:13 66 127/72 12/15/18 14:00 97.5 66 17 127/66 (86) 99 12/15/18 08:27 120/78 12/15/18 08:27 70 120/78 12/15/18 06:00 96.9 61 19 146/75 (98) 97 Intake & Output 12/16/18 06:00 Intake Total 1340 ml Output Total 2900 ml Balance -1560 ml Laboratory Tests 12/15/18 05:37: White Blood Count 9.3, Red Blood Count 4.50, Hemoglobin 12.4L, Hematocrit 38.4L, Mean Corpuscular Volume 85.3, Mean Corpuscular Hemoglobin 27.6, Mean Corpuscular Hemoglobin Concent 32.3, Red Cell Distribution Width 14.5, Platelet Count 294, N eutrophils (%) (Auto) 66.7H, Lymphocytes (%) (Auto) 18.9L, Monocytes (%) (Auto) 9.8H, Eosinophils (%) (Auto) 3.9H, Basophils (%) (Auto) 0.3, Neutrophils # (Auto) 6.2, Lymphocytes # (Auto) 1.8, Monocytes # (Auto) 0.9H, Eosinophils # (Auto) 0.4, Basophils # (Auto) 0.0, Immature Granulocyte % (Auto) 0.4, Nucleated Red Blood Cells % (auto) 0.0, Blood Urea Nitrogen 28H, Creatinine 1.44H, Sodium Level 139, Potassium Level 3.2L, Chloride Level 103, Carbon Dioxide Level 29, Calcium Level 8.6L, Aspartate Amino Transf (AST/SGOT) 25, Alanine Aminotransferase (ALT/SGPT) 24, Alkaline Phosphatase 82, Total Bilirubin 0.5, Total Protein 7.2, Albumin 3.1L, Anion Gap 7L, Glomerular Filtration Rate 52.1, Fasting Glucose 127H, Magnesium Level 1.9, Albumin/Globulin Ratio 0.76L 12/15/18 11:38: Bedside Glucose (Misc Panel) 142H 12/15/18 16:51: Bedside Glucose (Misc Panel) 124H 12/15/18 21:18: Bedside Glucose (Misc Panel) 175H Current Medications Medications (Trade) Dose Ordered Sig/Jocelyn Route PRN Reason Start Time Stop Time Status Last Admin Dose Admin Amiodarone HCl (Pacerone, Cordarone) 200 mg DAILY PO 12/13/18 09:00 12/15/18 08:27 200 MG Aspirin (Ecotrin) 81 mg DAILY PO 12/13/18 09:00 12/15/18 08:27 81 MG Atorvastatin Calcium (Lipitor) 40 mg QHS PO 12/13/18 21:00 12/15/18 21:12 40 MG Docusate Sodium (Colace) 100 mg BID PO 12/13/18 09:00 12/15/18 21:12 100 MG Ferrous Gluconate (Fergon) 324 mg BIDWM PO 12/13/18 08:00 12/15/18 17:27 324 MG Folic Acid (Folic Acid) 1 mg DAILY PO 12/13/18 09:00 12/15/18 08:27 1 MG Furosemide (LASIX injection) 40 mg BID@09,17 IV 12/14/18 17:00 12/15/18 17:28 40 MG Gabapentin (Neurontin) 400 mg BID PO 12/13/18 09:00 12/15/18 21:13 400 MG Insulin Human Lispro (HumaLOG INSULIN) See Protocol Table AC SC 12/13/18 07:30 12/15/18 17:28 2 UNITS Levothyroxine Sodium (Synthroid) 75 mcg DAILY@0600 PO 12/13/18 06:00 12/15/18 06:07 75 MCG Metoprolol Tartrate (Lopressor) 25 mg BID PO 12/13/18 09:00 12/15/18 21:13 25 MG Valsartan (Diovan) 20 mg DAILY PO 12/13/18 09:00 12/15/18 08:27 20 MG Warfarin Sodium (Coumadin) 4 mg Q2D@1700 PO 12/14/18 17:00 12/14/18 17:11 4 MG A/P 1-Acute exacerbation of systolic CHF: Monitor I/O Cont loop diuretics Cont betablocker and ARB INR is therapeutic,Continue Coumadin tele monitor Plan to switch to po diuretics in AM, anticipate DC in two days. VS,Fishbone, I+O VS, Fishbone, I+O Laboratory Tests 12/15/18 05:37 Red Blood Count 4.50, Mean Corpuscular Volume 85.3, Mean Corpuscular Hemoglobin 27.6, Mean Corpuscular Hemoglobin Concent 32.3, Red Cell Distribution Width 14.5, Neutrophils (%) (Auto) 66.7 H, Lymphocytes (%) (Auto) 18.9 L, Monocytes (%) (Auto) 9.8 H, Eosinophils (%) (Auto) 3.9 H, Basophils (%) (Auto) 0.3, Neutrophils # (Auto) 6.2, Lymphocytes # (Auto) 1.8, Monocytes # (Auto) 0.9 H, Eosinophils # (Auto) 0.4, Basophils # (Auto) 0.0, Calcium Level 8.6 L, Aspartate Amino Transf (AST/SGOT) 25, Alanine Aminotransferase (ALT/SGPT) 24, Alkaline Phosphatase 82, Total Bilirubin 0.5, Total Protein 7.2, Albumin 3.1 L Vital Signs Date Time Temp Pulse Resp B/P (MAP) Pulse Ox O2 Delivery O2 Flow Rate FiO2 12/15/18 14:00 97.5 66 17 127/66 (86) 99 12/13/18 10:30 1.0 12/13/18 09:56 Nasal Cannula I&O- Last 24 Hours up to 6 AM 12/15/18 06:00 Intake Total 1320 ml Output Total 2375 ml Balance -1055 ml JUAN GUEVARA MD Dec 15, 2018 20:10
[2018-12-15] MEDS: ATORVASTATIN 20 MG TAB PO SCH (21:12)
[2018-12-15 22:00] VITALS: BP 127/72
[2018-12-16] MEDS: POTASSIUM CHLORIDE 10 MEQ SR TABLET PO SCH (01:15)
[2018-12-16] MEDS: LEVOTHYROXINE 75MCG TABLET (0.075MG) PO SCH (05:45)
[2018-12-16 06:00] VITALS: BP 141/87
[2018-12-16 06:33] LABS: BLOOD UREA NITROGEN 26 MG/DL (7-18); CALCIUM LEVEL 8.8 MG/DL (8.8-10.2); CARBON DIOXIDE LEVEL 28 MEQ/L (21-32); CHLORIDE LEVEL 105 MEQ/L (98-107); CREATININE FOR GFR 1.27 MG/DL (0.70-1.30); GLOMERULAR FILTRATION RATE > 60.0 (>49); GLUCOSE, FASTING 162 MG/DL (70-100); POTASSIUM SERUM 3.8 MEQ/L (3.5-5.1); SODIUM LEVEL 138 MEQ/L (136-145)
[2018-12-16] MEDS: GABAPENTIN 400 MG CAP PO SCH ×2 (08:10→20:58)
[2018-12-16] MEDS: HumaLOG INSULIN (NovoLOG) PER UNIT SC SCH ×4 (08:10→20:50)
[2018-12-16] MEDS: FERROUS GLUCONATE 324 MG TAB PO SCH ×2 (08:11→17:45)
[2018-12-16] MEDS: FOLIC ACID 1 MG TAB PO SCH (08:11)
[2018-12-16] MEDS: DOCUSATE SODIUM 100 MG CAP PO SCH ×2 (08:11→20:57)
[2018-12-16] MEDS: VALSARTAN 40MG TABLET (DIOVAN) PO SCH (08:11)
[2018-12-16] MEDS: AMIODARONE 200 MG TAB (PACERONE) PO SCH (08:12)
[2018-12-16] MEDS: FUROSEMIDE 40 MG/4 ML VIAL (J1940) IV SCH (08:12)
[2018-12-16] MEDS: METOPROLOL TART 25 MG TABLET PO SCH ×2 (08:12→20:58)
[2018-12-16] MEDS: ASPIRIN 81 MG ENTERIC TAB PO SCH (08:12)
[2018-12-16 14:00] VITALS: BP 126/72
[2018-12-16] MEDS: WARFARIN SOD 4 MG TAB PO SCH (17:45)
[2018-12-16] MEDS: FUROSEMIDE 40 MG TAB PO SCH (18:47)
--- NOTE | 2018-12-16 20:34 | IPNPDOC ---
Date Seen The patient was seen on 12/16/18. Progress Note SUBJECTIVE: Patient reported feeling well. Denies any complaints. LE swelling had improved significantly. Denies any SOB at this time. OBJECTIVE PHYSICAL EXAMINATION: VITAL SIGNS: Please see below. General: No acute distress, Alert Eyes: Normal sclera, EOMI, CB HENT: Atraumatic, neck supple, moist mucous membranes Cardiovascular: Normal rate, normal rhythm. No murmurs appreciated. Pulmonary: Clear to auscultation b/l, no wheezing GI: Soft, nontender, nondistended Skin: Warm and dry Neuro: CN grossly intact. No focal deficits. Strengths equal b/l. Psych: oriented x 3 LABORATORY DATA, IMAGING STUDIES, MICROBIOLOGY: Please see below. ASSESSMENT AND PLAN: 1.HFrEF exacerbation - Clinically improved with IV diuretic. Transition to PO. - Monitor I/O. - Swelling and SOB had resolved. - c/w BB and ARB. - Tentatively d/c in AM if symptoms does not recur. [facility]O Vital Signs Date Time Temp Pulse Resp B/P (MAP) Pulse Ox O2 Delivery O2 Flow Rate FiO2 12/16/18 14:00 96.9 70 17 126/72 (90) 97 12/13/18 10:30 1.0 12/13/18 09:56 Nasal Cannula I&O- Last 24 Hours up to 6 AM 12/16/18 06:00 Intake Total 1540 ml Output Total 3250 ml Balance -1710 ml Laboratory Data 24H LABS Laboratory Tests 2 12/15/18 21:18: Bedside Glucose (Misc Panel) 175H 12/16/18 05:34: Anion Gap 5L, Glomerular Filtration Rate > 60.0, Blood Urea Nitrogen 26H, Creatinine 1.27, Sodium Level 138, Potassium Level 3.8, Chloride Level 105, Carbon Dioxide Level 28, Calcium Level 8.8 12/16/18 11:38: Bedside Glucose (Misc Panel) 138H 12/16/18 16:50: Bedside Glucose (Misc Panel) 134H CBC/BMP Laboratory Tests 12/16/18 05:34 Calcium Level 8.8 KARI HERNÁNDEZ MD Dec 16, 2018 20:34
[2018-12-16] MEDS: ATORVASTATIN 20 MG TAB PO SCH (20:58)
[2018-12-16 22:00] VITALS: BP 130/82
[2018-12-17] MEDS: LEVOTHYROXINE 75MCG TABLET (0.075MG) PO SCH (05:39)
[2018-12-17 06:00] VITALS: BP 145/68
[2018-12-17 06:16] LABS: HEMATOCRIT 40.7 % (42.0-52.0); HEMOGLOBIN 13.1 g/dl (13.5-17.5); MEAN CORPUSCULAR HEMOGLOBIN 27.5 pg (27.0-33.0); MEAN CORPUSCULAR HGB CONC 32.2 g/dl (32.0-36.5); MEAN CORPUSCULAR VOLUME 85.3 fl (80.0-96.0); PLATELET COUNT, AUTOMATED 268 10^3/uL (150-450); RED BLOOD COUNT 4.77 10^6/uL (4.30-6.10); WHITE BLOOD COUNT 8.5 10^3/uL (4.0-10.0)
[2018-12-17 06:35] LABS: INR 1.61; PROTHROMBIN TIME 19.4 SECONDS (12.1-14.4)
[2018-12-17 06:39] LABS: BLOOD UREA NITROGEN 21 MG/DL (7-18); CALCIUM LEVEL 8.5 MG/DL (8.8-10.2); CARBON DIOXIDE LEVEL 26 MEQ/L (21-32); CHLORIDE LEVEL 106 MEQ/L (98-107); CREATININE FOR GFR 1.27 MG/DL (0.70-1.30); GLOMERULAR FILTRATION RATE > 60.0 (>49); GLUCOSE, FASTING 157 MG/DL (70-100); POTASSIUM SERUM 3.6 MEQ/L (3.5-5.1); SODIUM LEVEL 139 MEQ/L (136-145)
[2018-12-17] MEDS: FERROUS GLUCONATE 324 MG TAB PO SCH (08:15)
[2018-12-17] MEDS: DOCUSATE SODIUM 100 MG CAP PO SCH (08:15)
[2018-12-17] MEDS: ASPIRIN 81 MG ENTERIC TAB PO SCH (08:15)
[2018-12-17] MEDS: GABAPENTIN 400 MG CAP PO SCH (08:15)
[2018-12-17] MEDS: FUROSEMIDE 40 MG TAB PO SCH (08:15)
[2018-12-17] MEDS: FOLIC ACID 1 MG TAB PO SCH (08:16)
[2018-12-17] MEDS: AMIODARONE 200 MG TAB (PACERONE) PO SCH (08:16)
[2018-12-17] MEDS: VALSARTAN 40MG TABLET (DIOVAN) PO SCH (08:16)
[2018-12-17 08:17] VITALS: BP 133/84
[2018-12-17] MEDS: METOPROLOL TART 25 MG TABLET PO SCH (08:17)
[2018-12-17] MEDS: HumaLOG INSULIN (NovoLOG) PER UNIT SC SCH ×2 (08:17→12:01)
[2018-12-17 14:00] VITALS: BP 107/64
--- NOTE | 2018-12-17 15:54 | DS.PDOC ---
Discharge Summary General Date of Admission Dec 13, 2018 at 04:26 Date of Discharge 12/17/18 Discharge Summary PROCEDURES PERFORMED DURING STAY: [None]. ADMITTING DIAGNOSES: 1. Acute on chronic HFrEF 2. DM 3. HTN 4. HLD 5. CAD DISCHARGE DIAGNOSES: 1. Acute on chronic HFrEF 2. DM 3. HTN 4. HLD 5. CAD COMPLICATIONS/CHIEF COMPLAINT: CHF. HISTORY OF PRESENT ILLNESS: "The patient is a 68-year-old white male with several current medical conditions, came to the emergency room for evaluation of shortness of breath. History provided by himself as well as by review of chart. 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 Actually he had been hospitalized here recently from 11/28 to 12/01/2018 for shortness of breath. Also he came back to the emergency room 12/03/2018 after discharge from the hospital for the same problem. He was then worked up in the emergency room and discharged home. Actually he followed up with Dr. Munoz in the office just 2 days ago and came back today initially with some dizziness and he was evaluated in the emergency room and discharged home. He came back to the hospital because of difficulty breathing. IV Lasix was given in the emergency room. Medicine staff was called for admission." HOSPITAL COURSE: Patient was diuresed with improvement in symptoms including resolution of SOB and LE edema. Transitioned to PO without problems. Patient feels well and denies any complaints. Patient is discharged to f/u PMD and Cardiology. DISCHARGE MEDICATIONS: Please see below. ALLERGIES: Please see below. PHYSICAL EXAMINATION ON DISCHARGE: VITAL SIGNS: Please see below. General: No acute distress, Alert Eyes: Normal sclera, EOMI, CB HENT: Atraumatic, neck supple, moist mucous membranes Cardiovascular: Normal rate, normal rhythm. No murmurs appreciated. Pulmonary: Clear to auscultation b/l, no wheezing GI: Soft, nontender, nondistended Skin: Warm and dry Neuro: CN grossly intact. No focal deficits. Strengths equal b/l. Psych: oriented x 3 LABORATORY DATA: Please see below. IMAGING: CT Angio chest- IMPRESSION: 1. Mild left pleural effusion with mild left lower lobe compressive atelectasis and possible minimal infiltrate. 2. Slight generalized prominence of the interstitium with minimal fibro-atelectatic change in the left upper lobe and lingula. 3. Status post sternotomy and aortic valve replacement. 4. Motion artifact in the lungs with image degradation. No central pulmonary embolism is identified. ACTIVITY: [As tolerated]. DIET: Cardiac diet DISCHARGE PLAN: f/u PMD and Cardiology DISPOSITION: 01 Home, Self-Care. DISCHARGE INSTRUCTIONS: f/u PMD and Cardiology ITEMS TO FOLLOWUP ON ON OUTPATIENT: None DISCHARGE CONDITION: [Stable]. TIME SPENT ON DISCHARGE: 32 minutes. Vital Signs/I&Os Vital Signs Date Time Temp Pulse Resp B/P (MAP) Pulse Ox O2 Delivery O2 Flow Rate FiO2 12/17/18 14:00 96.4 76 17 107/64 (78) 99 12/13/18 10:30 1.0 12/13/18 09:56 Nasal Cannula I&O- Last 24 Hours up to 6 AM 12/17/18 06:00 Intake Total 900 ml Output Total 1700 ml Balance -800 ml Laboratory Data Labs 24H Laboratory Tests 2 12/16/18 16:50: Bedside Glucose (Misc Panel) 134H 12/16/18 20:33: Bedside Glucose (Misc Panel) 174H 12/17/18 05:41: Nucleated Red Blood Cells % (auto) 0.0, Prothrombin Time 19.4H, Prothromb Time International Ratio 1.61, Anion Gap 7L, Glomerular Filtration Rate > 60.0, Blood Urea Nitrogen 21H, Creatinine 1.27, Sodium Level 139, Potassium Level 3.6, Chloride Level 106, Carbon Dioxide Level 26, Calcium Level 8.5L 12/17/18 11:49: Bedside Glucose (Misc Panel) 122H CBC/BMP Laboratory Tests 12/17/18 05:41 Red Blood Count 4.77, Mean Corpuscular Volume 85.3, Mean Corpuscular Hemoglobin 27.5, Mean Corpuscular Hemoglobin Concent 32.2, Red Cell Distribution Width 14.2, Calcium Level 8.5 L FSBS Laboratory Tests Test 12/16/18 16:50 12/16/18 20:33 12/17/18 11:49 Range/Units Bedside Glucose (Misc Panel) 134 174 122 80-115 MG/DL Discharge Medications Scheduled Amiodarone HCl (Amiodarone HCl) 200 Mg Tablet, 200 MG PO DAILY, (Reported) Aspirin (Aspir 81) 81 Mg Tablet.dr, 81 MG PO DAILY, (Reported) Atorvastatin Calcium (Atorvastatin Calcium) 40 Mg Tablet, 40 MG PO QHS, (Reported) Canagliflozin (Invokana) 300 Mg Tablet, 300 MG PO DAILY, (Reported) Docusate Sodium (Colace) 100 Mg Capsule, 100 MG PO BID, (Reported) Ferrous Gluconate (Ferrous Gluconate) 324 Mg Tablet, 324 MG PO BIDWM, (Reported) Folic Acid (Folic Acid) 1 Mg Tablet, 1 MG PO DAILY, (Reported) Furosemide (Furosemide) 40 Mg Tablet, 40 MG PO DAILY, (Reported) Gabapentin (Gabapentin) 400 Mg Capsule, 400 MG PO BID, (Reported) Levothyroxine Sodium (Levothyroxine Sodium) 75 Mcg Tablet, 75 MCG PO DAILY, (Reported) Metoprolol Tartrate (Metoprolol Tartrate) 25 Mg Tablet, 25 MG PO BID, (Reported) Sitagliptin Phos/Metformin HCl (Janumet 50-1,000 mg Tablet) 1 Each Tablet, 1 TAB PO BID, (Reported) Spironolactone (Spironolactone) 25 Mg Tablet, 25 MG PO DAILY, (Reported) Valsartan (Valsartan) 40 Mg Tablet, 20 MG PO DAILY, (Reported) Warfarin Sodium (Warfarin Sodium) 2 Mg Tablet, 2 MG PO Q2D, (Reported) STARTING THIS DOSE ON 12/13/18 AT 1800 Warfarin Sodium (Warfarin Sodium) 2 Mg Tablet, 4 MG PO Q2D, (Reported) STARTING THIS DOSE ON 12/14/18 AT 1800 Scheduled PRN Acetaminophen (Acetaminophen) 325 Mg Tablet, 650 MG PO Q4H PRN for PAIN, (Reported) Oxycodone HCl/Acetaminophen (Oxycodone-Acetaminophen 5-325) 1 Each Tablet, 1 TAB PO Q4H PRN for PAIN, (Reported) Allergies Coded Allergies: No Known Allergies (Unverified , 11/28/18) KARI HERNÁNDEZ MD Dec 17, 2018 15:54
== END 2018-12-17 14:57 | disposition home or self-care (01) | DRG 293 ==
LOC: M ED 01:09 → M ED INP 04:26 → M ICU 10:09 → M MSPAV 12-14 16:04
PROVIDERS: ADMIT Hospitalist; ATTEND Student in an Organized Health Care Education/Training Program
DX: I11.0 Hypertensive heart disease with heart failure (principal); I50.23 Acute on chronic systolic (congestive) heart failure; E11.9 Type 2 diabetes mellitus without complications; I25.10 Atherosclerotic heart disease of native coronary artery without angina pectoris; Z95.1 Presence of aortocoronary bypass graft; Z79.899 Other long term (current) drug therapy; Z79.82 Long term (current) use of aspirin; E78.5 Hyperlipidemia, unspecified

== ENCOUNTER → 2021-11-21 | Outpatient (CLI) | payer MEDICARE ==
[~2021-11-21] MED LIST changes: -ACET-908 PO; +ACET-910 PO; -AMIO200T PO; +AMIO200T49 PO; -ASPI81TA85 PO; +ASPI81TA86 PO; +FERR324T21 PO; -FERR325T16 PO; +GABA-283 PO; -GABA-845 PO; -MECL-68 PO; +MECL1CHW PO; +MECL1TAB31 PO; -VALS1TAB49 PO; +VALS40TA9 PO
== END ==
LOC: M RAD 13:43
PROVIDERS: ATTEND Nurse Practitioner Family
DX: I70.203 Unspecified atherosclerosis of native arteries of extremities, bilateral legs (principal); M79.604 Pain in right leg; M79.605 Pain in left leg